=== PATIENT | male | born 1965 | race African-American/Black ===

== ENCOUNTER 2016-06-27 11:08 | Emergency (ER) | payer MEDICAID, OTHER ==
[~2016-06-27] VITALS: Ht 180.3 cm; Wt 113.4 kg
[~2016-06-27 11:08] MED LIST: ADVAIR 250-501 EACH INH; ALBUTEROL SULF8.5 GM INH; ALPRAZOLAM1 MG PO; AMOXICILLIN500 MG ORAL; ASPIRIN-LOW81 MG PO; ATENOLOL50 MG PO; AZITHROMYCIN250 MG ORAL; BACTRIM DS TAB1 EAC1 ORAL; CEPHALEXIN500 MG ORAL; GUAIFENESIN1200 MG PO; HYDROCHLOROTHIA25 MG ORAL; IMITREX100 M1 ORAL; IMITREX50 MG ORAL; KEFLEX500 MG ORAL; MEDROL DOSEPAK4 MG ORAL; NORCO 10-325 T1 EACH ORAL; NORCO 10-325 T1 EACH PO; NORCO 10/3251 EA ORAL; NORCO 5-325 TA1 EACH ORAL; NORVASC10 MG PO; PREDNISONE20 MG ORAL; PROMETHAZINE-C118 M1 ORAL; PROMETHAZINE-D118 ML ORAL; PROMETHAZINE-P118 ML ORAL; RAMIPRIL2.5 MG PO; SOMA350 MG PO; TENORMIN50 MG PO; VUSION OINTMENT50 GM TP; XANAX2 MG ORAL; XANAX2 MG PO; ZITHROMAX250 MG ORAL
[2016-06-27 12:15] VITALS: BP 101/69
[2016-06-27] MEDS ORDERED: PROMETHAZINE-D118 ML ORAL (12:28)
[2016-06-27] MEDS ORDERED: PROAIR HFA8.5 GM INH (12:28)
[2016-06-27] MEDS ORDERED: PREDNISONE20 MG ORAL (12:28)
[2016-06-27 12:38] VITALS: BP 101/69
--- NOTE | 2016-06-27 21:45 | Emergency Room Report ---
History of Present Illness General Chief Complaint: Sore Throat Source: Patient Present Illness HPI The patient is a 50-year-old male presenting with a productive cough and subjective fevers which began one week prior. The patient states that his girlfriend has had similar symptoms but has not been diagnosed with anything. The pt denies CP, SOB, hemoptysis, rash, abd pain, N, V Pt states he has a Hx of asthma. Allergies: Coded Allergies: No Known Allergies (Unverified , 05/25/12) Patient History Past Medical History: see triage record Pertinent Family History: none Reviewed Nursing Documentation: PMH: Agreed, PSxH: Agreed Nursing Documentation-PMH Past Medical History: No History, Except For Hx Hypertension: Yes Hx Asthma: Yes Hx COPD: Yes Review of Systems All Other Systems: negative except mentioned in HPI Physical Exam Vital Signs Date Time Temp Pulse Resp B/P Pulse Ox O2 Delivery O2 Flow Rate FiO2 06/27/16 11:31 98.1 77 16 101/69 96 Room Air Sp02 EP Interpretation: reviewed, normal General Appearance: no apparent distress, alert, GCS 15, non-toxic Head: normocephalic, atraumatic Eyes: bilateral eye PERRL, bilateral eye normal inspection ENT: hearing grossly normal, normal pharynx, no angioedema, normal voice, TMs + canals normal, uvula midline, moist mucus membranes Neck: full range of motion, supple/symm/no masses Respiratory: normal inspection, chest non-tender, decreased breath sounds, wheezing - minimal bilat upper lobes Cardiovascular #1: regular rate, rhythm, no edema Musculoskeletal: back normal, gait/station normal, normal range of motion, non- tender Neurologic: alert, oriented x3, responsive, motor strength/tone normal, sensory intact, speech normal Psychiatric: judgement/insight normal, memory normal, mood/affect normal, no suicidal/homicidal ideation Skin: normal color, no rash, warm/dry, well hydrated Lymphatic: no adenopathy Medical Decision Making PA Attestation Dr. Dunn is my supervising physician. Patient management was discussed with my supervising physician Diagnostic Impression: Primary Impression: Bronchitis ER Course The patient is a 50-year-old male presenting with a productive cough and subjective fevers which began one week prior. Differential diagnosis include but not limited to pharyngitis, sinusitis, AOM, bronchitis, PNA PE: Vitals WNL. NAD. HEENT unremarkable. Lungs: decreased breath sounds. Minimal bilat wheezing of upper lobes. Otherwise exam is unremarkable. The patient will be discharged home with a prescription for albuterol, prednisone, and cough medication. ER precautions are given the patient will follow up with primary care physician Last Vital Signs Date Time Temp Pulse Resp B/P Pulse Ox O2 Delivery O2 Flow Rate FiO2 06/27/16 12:38 98.1 77 16 101/69 96 Room Air Status: improved Disposition: HOME, SELF-CARE Condition: Improved Scripts D-Methorphan Hb/Prometh Hcl* (PROMETHAZINE-DM SYRUP*) 118 Ml Syrup 5 ML ORAL Q6H Y for For Cough, #118 ML 0 Refills Prov: TOMASZ MOODY P.A. 06/27/16 Prednisone* (PREDNISONE*) 20 Mg Tablet 20 MG ORAL DAILY, #5 TAB 0 Refills Prov: TOMASZ MOODY P.A. 06/27/16 Albuterol Sulfate* (PROAIR HFA*) 8.5 Gm Hfa.aer.ad 2 PUFFS INH Q6H, #8.5 GM 0 Refills Prov: TOMASZ MOODY P.A. 06/27/16 Referrals: NON PHYSICIAN (PCP) Patient Instructions: Acute Bronchitis Additional Instructions: I discussed my findings with the patient. All questions and concerns have been answered. Treatment and medication compliance have been addressed. I advised the patient that they need to follow up with PMD in 3-5 days. Return to ED if pain remains or worsens, cough worsens or remains, you notice blood in your sputum, you notice wheezing, you experience a fever, or if needed for any reason. Patient verbalized understanding of discharge instructions. TOMASZ MOODY Jun 27, 2016 21:45
== END 2016-06-27 12:38 | disposition home or self-care (01) ==
LOC: EMR 12:22
DX: J45.909 Unspecified asthma, uncomplicated (principal); J44.9 Chronic obstructive pulmonary disease, unspecified; I10 Essential (primary) hypertension
CPT/HCPCS: 99282

== ENCOUNTER 2016-07-20 11:52 | Emergency (ER) | payer OTHER ==
[~2016-07-20] VITALS: Ht 180.3 cm; Wt 113.4 kg
[~2016-07-20 11:52] MED LIST changes: +PROAIR HFA8.5 GM INH
[2016-07-20 12:30] VITALS: BP 116/75
--- NOTE | 2016-07-20 13:11 | Emergency Room Report ---
History of Present Illness General Chief Complaint: Sore Throat Present Illness HPI 50 YO Male presents to the ED c/o : Sore throat 10/10 pain since sat, denies cough, nasal congestion, or other symptoms. pt. reports chills, and subjective fevers. Pt describes pain as a tearing sensation that is exacerbated with swallowing. Denies CP, Palpitations, LOC, AMS, dizziness, Changes in Vision, Sensation, paresthesias, or a sudden severe headache. Allergies: Coded Allergies: No Known Allergies (Unverified , 05/25/12) Patient History Past Medical History: see triage record Past Surgical History: none Nursing Documentation-PMH Hx Hypertension: Yes Hx Asthma: Yes Hx COPD: Yes Review of Systems All Other Systems: negative except mentioned in HPI Physical Exam Vital Signs Date Time Temp Pulse Resp B/P Pulse Ox O2 Delivery O2 Flow Rate FiO2 07/20/16 12:19 98.8 80 16 116/75 96 Room Air Sp02 EP Interpretation: reviewed, normal General Appearance: no apparent distress, alert, GCS 15, non-toxic Head: normocephalic, atraumatic Eyes: bilateral eye PERRL, bilateral eye normal inspection ENT: hearing grossly normal, normal pharynx, no angioedema, normal voice, TMs + canals normal, uvula midline, pharyngeal erythema, tonsillar exudate Neck: full range of motion, supple/symm/no masses Respiratory: chest non-tender, lungs clear, normal breath sounds, speaking full sentences Cardiovascular #1: regular rate, rhythm, no edema Gastrointestinal: normal bowel sounds, non tender, soft, no guarding, no rebound Rectal: deferred Genitourinary: normal inspection, no CVA tenderness Musculoskeletal: back normal, gait/station normal, normal range of motion, non- tender, no calf tenderness Neurologic: alert, oriented x3, responsive, motor strength/tone normal, sensory intact, speech normal Psychiatric: judgement/insight normal, memory normal, mood/affect normal, no suicidal/homicidal ideation Skin: normal color, no rash, warm/dry, well hydrated Lymphatic: no adenopathy Medical Decision Making PA Attestation Dr. Polanco is my supervising Physician whom patient management has been discussed with. Diagnostic Impression: Primary Impression: Pharyngitis, acute Qualified Codes: J02.9 - Acute pharyngitis, unspecified ER Course Pt. presents to the ED c/o : sore throat, tonsillar swelling x 5 days Ddx considered but are not limited to: pharyngitis, strep, FORK LIFT TECHNICIAN, ludwigs angina, URI Vital signs: are WNL, pt. is afebrile H&PE are most consistent with: pharyngitis presumed strep. ORDERS: None required at this time as the diagnosis is clinical ED INTERVENTIONS: none required at this time. DISCHARGE: At this time pt. is stable for d/c to home. Will provide printed patient care instructions, and any necessary prescriptions. Care plan and follow up instructions have been discussed with the patient prior to discharge. Last Vital Signs Date Time Temp Pulse Resp B/P Pulse Ox O2 Delivery O2 Flow Rate FiO2 07/20/16 12:19 98.8 80 16 116/75 96 Room Air Disposition: HOME, SELF-CARE Condition: Stable Scripts Acetaminophen* (TYLENOL EXTRA STRENGTH*) 500 Mg Tablet 500 MG ORAL Q6H, #30 TAB 0 Refills Prov: Sophia De Los Santos 07/20/16 Lidocaine HCl (Lidocaine HCl Viscous) 100 Ml Solution 15 ML PO TID, #100 ML Prov: Sophia De Los Santos 07/20/16 Amoxicillin* (AMOXIL*) 500 Mg Capsule 500 MG ORAL BID for 10 Days, #20 CAP Prov: Sophia De Los Santos 07/20/16 Referrals: JON NIEVES (PCP) Patient Instructions: Sore Throat Additional Instructions: Take medications as directed. Follow up with PCP in 3-5 days Return sooner to ED if new symptoms occur, or current symptoms become worse. Sophia De Los Santos Jul 20, 2016 13:11
[2016-07-20] MEDS ORDERED: AMOXICILLIN500 MG ORAL (13:14)
[2016-07-20] MEDS ORDERED: LIDOCAINE VISCO20 ML PO (13:14)
[2016-07-20] MEDS ORDERED: TYLENOL EXTRA500 MG ORAL (13:14)
[2016-07-20 13:24] VITALS: BP 116/75
== END 2016-07-20 13:24 | disposition home or self-care (01) ==
LOC: EMR 12:55
DX: J02.9 Acute pharyngitis, unspecified (principal); I10 Essential (primary) hypertension; J44.9 Chronic obstructive pulmonary disease, unspecified; J45.909 Unspecified asthma, uncomplicated
CPT/HCPCS: 99284

== ENCOUNTER 2016-10-08 09:39 | Emergency (ER) | payer OTHER ==
[~2016-10-08] VITALS: Ht 180.3 cm; Wt 108.4 kg
[~2016-10-08 09:39] MED LIST changes: +LIDOCAINE VISCO20 ML PO; +TYLENOL EXTRA500 MG ORAL
[2016-10-08 11:12] VITALS: BP 147/89
--- NOTE | 2016-10-08 13:22 | Emergency Room Report ---
History of Present Illness General Chief Complaint: General Complaint Source: Patient Present Illness HPI 50 YOM presents with "panic attack." Patient states known peptic ulcer disease , had some epigastric pain this morning, now resolved. Compliant with prevacid. Ran out of alprazolam he takes for panic disorder. Denies SI, HI, AVH. Denies nausea/vomiting, diarrhea, previous abd surgery. Denies other medical problems. Denies fever/chills, urinary complaints. Allergies: Coded Allergies: No Known Allergies (Unverified , 05/25/12) Patient History Past Medical History: other - PUD Past Surgical History: none Pertinent Family History: none Social History: Denies: alcohol use, drug use, smoking Immunizations: UTD Reviewed Nursing Documentation: PMH: Agreed, PSxH: Agreed Nursing Documentation-PMH Past Medical History: No History, Except For Hx Hypertension: Yes Hx Asthma: Yes Hx COPD: Yes History Of Psychiatric Problem: Yes - panic attack Review of Systems All Other Systems: negative except mentioned in HPI Physical Exam Vital Signs Date Time Temp Pulse Resp B/P Pulse Ox O2 Delivery O2 Flow Rate FiO2 10/08/16 09:45 98.2 81 16 124/79 97 Room Air Sp02 EP Interpretation: reviewed, normal General Appearance: normal inspection, well appearing, no apparent distress, alert, GCS 15, non-toxic Head: normocephalic, atraumatic Eyes: bilateral eye EOMI, bilateral eye PERRL ENT: normal ENT inspection, hearing grossly normal, normal voice Neck: normal inspection, full range of motion, supple, no bony tend Respiratory: normal inspection, lungs clear, normal breath sounds, no respiratory distress, no retraction, no wheezing Cardiovascular #1: regular rate, rhythm, no edema Gastrointestinal: normal inspection, normal bowel sounds, non tender, soft, no mass, no guarding, no hernia, no pulsatile mass, no rebound Genitourinary: no CVA tenderness Musculoskeletal: normal inspection, back normal, normal range of motion, Sujata' s Sign negative Neurologic: normal inspection, alert, oriented x3, responsive, pest controller III-XII nml as tested, motor strength/tone normal, speech normal Psychiatric: normal inspection, judgement/insight normal, mood/affect normal Skin: normal inspection, normal color, no rash Medical Decision Making Diagnostic Impression: Primary Impression: Anxiety ER Course 50YOM with anxiety vs panic disorder. VSS. Afebrile. No SI, HI, AVH Likely anxiety given he is anxious about particular medical condition ?benzo-seeking behavior as well Gave dose of clonazapam here, advised PMD referral for Benzo Rx's DC home Last Vital Signs Date Time Temp Pulse Resp B/P Pulse Ox O2 Delivery O2 Flow Rate FiO2 10/08/16 11:12 78 19 147/89 100 Room Air 10/08/16 10:30 98.2 Status: improved Disposition: HOME, SELF-CARE Condition: Improved Referrals: [facility],REFERRING (PCP) Patient Instructions: Panic Attacks, [id number] Additional Instructions: - Continue taking prevacid at home for pepctic ulcer disease - Follow up with your doctor for refill of anti-anxiety medication RADHA ZAMORA M.D. Oct 08, 2016 13:22
== END 2016-10-08 10:30 | disposition home or self-care (01) ==
LOC: EMR 09:56
DX: F41.9 Anxiety disorder, unspecified (principal); I10 Essential (primary) hypertension; J44.9 Chronic obstructive pulmonary disease, unspecified; Z87.11 Personal history of peptic ulcer disease
CPT/HCPCS: 99283

== ENCOUNTER 2017-01-11 10:25 | Emergency (ER) | payer OTHER ==
[~2017-01-11] VITALS: Ht 180.3 cm; Wt 104.3 kg
[2017-01-11 11:04] VITALS: BP 89/57
[2017-01-11 11:19] LABS: BASOPHILS % (AUTO) 1.4 % (0.0-2.0); EOSINOPHILS % (AUTO) 1.6 % (0.0-3.0); LYMPHOCYTES % (AUTO) 30.2 % (20.0-45.0); MEAN CORPUSCULAR HEMOGLOBIN 30.4 PG (27.0-31.0); MEAN CORPUSCULAR HGB CONC 30.6 G/DL (32.0-36.0); MEAN CORPUSCULAR VOLUME 99 FL (80-99); MEAN PLATELET VOLUME 11.6 FL (6.5-10.1); MONOCYTES % (AUTO) 9.6 % (1.0-10.0); NEUTROPHILS % (AUTO) 57.3 % (45.0-75.0); PLATELET COUNT 162 K/UL (150-450); RED BLOOD COUNT 4.49 M/UL (4.70-6.10); WHITE BLOOD COUNT 7.8 K/UL (4.8-10.8)
--- NOTE | 2017-01-11 11:19 | Emergency Room Report ---
History of Present Illness General Chief Complaint: Chest Pain Source: Patient Present Illness HPI Patient states that he has had cough and congestion for the past week. He states that over the past few days his symptoms have become worse. He also has sputum production. He admits to smoking marijuana daily including just prior to arrival today. He also used cocaine yesterday. He also smokes intermittently. He has been told that he has asthma or COPD. He states he also has some kidney dysfunction. He states that he has been coughing so much that his abdomen is sore. He denies fever or chills. He denies nausea or vomiting. He denies chest pain. He has no other complaints. Allergies: Coded Allergies: No Known Allergies (Unverified , 05/25/12) Patient History Past Medical History: see triage record, HTN, asthma, renal disease Social History: Reports: alcohol use, drug use - THC, cocaine, smoking Reviewed Nursing Documentation: PMH: Agreed, PSxH: Agreed Nursing Documentation-PMH Hx Hypertension: Yes Hx Asthma: Yes Hx COPD: Yes Review of Systems All Other Systems: negative except mentioned in HPI Physical Exam Vital Signs Date Time Temp Pulse Resp B/P Pulse Ox O2 Delivery O2 Flow Rate FiO2 01/11/17 10:33 97.9 72 20 99/62 96 Room Air Sp02 EP Interpretation: reviewed, normal General Appearance: no apparent distress, alert, GCS 15, non-toxic, other - + odor of marijuana Head: normocephalic, atraumatic Eyes: bilateral eye PERRL, bilateral eye normal inspection ENT: hearing grossly normal, normal pharynx, no angioedema, normal voice Neck: full range of motion, supple/symm/no masses Respiratory: chest non-tender, no respiratory distress, no retraction, no accessory muscle use, speaking full sentences, wheezing, expiration Cardiovascular #1: regular rate, rhythm, no edema Gastrointestinal: normal bowel sounds, non tender, soft, non-distended, no guarding, no rebound Rectal: deferred Musculoskeletal: back normal, gait/station normal, normal range of motion, non- tender, calf tenderness Neurologic: alert, oriented x3, responsive, motor strength/tone normal, sensory intact, speech normal Psychiatric: judgement/insight normal, memory normal, mood/affect normal, no suicidal/homicidal ideation Skin: normal color, no rash, warm/dry, well hydrated Medical Decision Making Diagnostic Impression: Primary Impression: URI (upper respiratory infection) Additional Impressions: COPD exacerbation Renal insufficiency ER Course This patient presents a COPD exacerbation. Initially he was hypotensive with a systolic blood pressure of 89. He was given IV fluids and breathing treatments and IV antibiotics. He had significant improvement the wheezing on exam and his blood pressure improved to normal. The patient was found to have a creatinine of 2.7. The patient has known renal insufficiency but states he hasn 't seen a melt superintendant in several years. He does have authorization to see Dr. Clement. The patient continued to have wheezing on physical exam and given the patient's creatinine at 2.7 an EKG that has diffuse ST elevations although only 1 mm but could be a low-grade pericarditis or J-point elevations. I felt that this patient should be admitted. He does have a reassuring troponin. There is no evidence of pneumonia on chest x-ray. This patient will be admitted to telemetry for further evaluation and treatment. Labs Test 01/11/17 10:40 White Blood Count 7.8 K/UL (4.8-10.8) Red Blood Count 4.49 M/UL (4.70-6.10) Hemoglobin 13.7 G/DL (14.2-18.0) Hematocrit 44.6 % (42.0-52.0) Mean Corpuscular Volume 99 FL (80-99) Mean Corpuscular Hemoglobin 30.4 PG (27.0-31.0) Mean Corpuscular Hemoglobin Concent 30.6 G/DL (32.0-36.0) Red Cell Distribution Width 13.0 % (11.6-14.8) Platelet Count 162 K/UL (150-450) Mean Platelet Volume 11.6 FL (6.5-10.1) Neutrophils (%) (Auto) 57.3 % (45.0-75.0) Lymphocytes (%) (Auto) 30.2 % (20.0-45.0) Monocytes (%) (Auto) 9.6 % (1.0-10.0) Eosinophils (%) (Auto) 1.6 % (0.0-3.0) Basophils (%) (Auto) 1.4 % (0.0-2.0) Sodium Level 139 mEQ/L (135-145) Potassium Level 3.9 mEQ/L (3.4-4.9) Chloride Level 100 mEQ/L (98-107) Carbon Dioxide Level 27 mEQ/L (20-30) Anion Gap 12 (5-15) Blood Urea Nitrogen 35 mg/dL (7-23) Creatinine 2.7 mg/dL (0.7-1.2) Estimat Glomerular Filtration Rate 30.1 mL/min (>60) Glucose Level 109 mg/dL (74-106) Calcium Level 8.6 mg/dL (8.6-10.2) Total Bilirubin 0.3 mg/dL (0.0-1.2) Aspartate Amino Transf (AST/SGOT) 22 U/L (5-40) Alanine Aminotransferase (ALT/SGPT) 15 U/L (3-41) Alkaline Phosphatase 75 U/L (40-129) Total Creatine Kinase 103 U/L (38-174) Creatine Kinase MB < 1.5 ng/mL (< 6.7) Creatine Kinase MB Relative Index Troponin I < 0.30 ng/mL (<=0.30) Total Protein 6.9 g/dL (6.6-8.7) Albumin 4.2 g/dL (3.5-5.2) Globulin 2.7 g/dL Albumin/Globulin Ratio 1.5 (1.0-2.7) EKG Diagnostic Results Rate: normal Rhythm: NSR ST Segments: other Other Impression Diffuse 1mm ST elevations. Rhythm Strip Diag. Results EP Interpretation: yes Rate: 60's Rhythm: NSR, no PVC's, no ectopy Chest X-Ray Diagnostic Results Chest X-Ray Diagnostic Results : Chest X-Ray Ordered: Yes # of Views/Limited/Complete: 1 View Indication: Chest Pain EP Interpretation: No Interpretation: no consolidation, no effusion, no pneumothorax, no acute cardiopulmonary disease Impression: No acute disease Interpreting ER Provider: Bina Last Vital Signs Date Time Temp Pulse Resp B/P Pulse Ox O2 Delivery O2 Flow Rate FiO2 01/11/17 11:04 97.9 68 18 89/57 93 Room Air Disposition: ADMITTED INPATIENT Condition: Serious Referrals: JON NIEVES (PCP) BASHIR ERNANDEZ D.O. Jan 11, 2017 11:19
--- NOTE | 2017-01-11 11:26 | Diagnostic Imaging Report ---
Indication: Chest pain Technique: One view of the chest Comparison: 08/16/2015 Findings: Lungs and pleural spaces are clear. Heart size is normal. No significant change Impression: No acute process
[2017-01-11] MEDS ORDERED: Albuterol ud Inhalation HHN ONE ×2 (11:30→14:45)
[2017-01-11] MEDS ORDERED: cefTRIAXone 1 GM in NS 55 ML IVPB ONE (11:30)
[2017-01-11 11:35] LABS: ALANINE AMINOTRANSFERASE 15 U/L (3-41); ALBUMIN/GLOBULIN RATIO 1.5 (1.0-2.7); ANION GAP 12 (5-15); ASPARTATE AMINO TRANSFERASE 22 U/L (5-40); CALCIUM 8.6 mg/dL (8.6-10.2); CARBON DIOXIDE 27 mEQ/L (20-30); CHLORIDE 100 mEQ/L (98-107); CREATININE 2.7 mg/dL (0.7-1.2); GLOMERULAR FILTRATION RATE 30.1 mL/min (>60); HEMOLYSIS 7; POTASSIUM 3.9 mEQ/L (3.4-4.9); SODIUM 139 mEQ/L (135-145); TOTAL PROTEIN 6.9 g/dL (6.6-8.7); TROPONIN I < 0.30 ng/mL (<=0.30)
[2017-01-11 11:40] VITALS: BP 108/64
[2017-01-11 11:45] LABS: CKMB < 1.5 ng/mL (< 6.7)
[2017-01-11 14:00] VITALS: BP 101/65
[2017-01-11] MEDS ORDERED: PredniSONE 20mg tab ORAL ONE (14:45)
[2017-01-11 15:32] LABS: APPEARANCE,URINE CLEAR; KETONES,URINE NEGATIVE (NEGATIVE); LEUKOCYTE ESTERASE ,URINE NEGATIVE (NEGATIVE); NITRITE,URINE NEGATIVE (NEGATIVE); PH,URINE 5 (4.5-8.0); PROTEIN,URINE NEGATIVE (NEGATIVE); UROBILINOGEN,URINE NORMAL MG/DL (0.0-1.0)
[2017-01-11 16:27] VITALS: BP 100/66
[2017-01-11] MEDS ORDERED: TYLENOL EXTRA500 MG ORAL (17:03)
[2017-01-11] MEDS ORDERED: AZITHROMYCIN250 MG ORAL (17:03)
[2017-01-11] MEDS ORDERED: PREDNISONE20 MG ORAL (17:05)
[2017-01-11 17:12] VITALS: BP 128/76
== END 2017-01-11 17:15 | disposition left against medical advice (07) ==
LOC: EMR 10:55
DX: J06.9 Acute upper respiratory infection, unspecified (principal); J44.1 Chronic obstructive pulmonary disease with (acute) exacerbation; N28.9 Disorder of kidney and ureter, unspecified; I10 Essential (primary) hypertension; F12.90 Cannabis use, unspecified, uncomplicated
CPT/HCPCS: 36415; 71010; 80053; 80300; 81003; 82550; 82553; 84484; 85025; 93005; 94640; 96374; 96375; 99284; J0696

== ENCOUNTER 2017-05-20 13:49 | Emergency (ER) | payer OTHER ==
[~2017-05-20] VITALS: Ht 180.3 cm; Wt 98.0 kg
[2017-05-20] MEDS ORDERED: PREDNISONE20 MG ORAL (14:15)
[2017-05-20] MEDS ORDERED: FLONASE SENSIM9.9 ML NS (14:15)
[2017-05-20] MEDS ORDERED: SUDAFED 12 HOU120 M1 PO (14:15)
[2017-05-20] MEDS ORDERED: PROMETHAZINE-C118 M1 ORAL (14:15)
[2017-05-20 14:30] VITALS: BP 138/95
--- NOTE | 2017-05-20 15:34 | Emergency Room Report ---
History of Present Illness General Chief Complaint: Upper Respiratory Illness Source: Patient Present Illness HPI The patient is a 51-year-old male with a history of asthma and nasal polyp presenting for nasal congestion, cough, and facial pain for the past 3 weeks. He denies any fever or chills. Pain is an 8/10 dull ache and does not radiate from the face. No known provoking relieving factors. He has tried over-the- counter cough medication which has not been helping. He also states that he ran out of clonazepam for anxiety and has not been able to followup with his primary doctor. He states that he has not been feeling anxious recently. He denies any other symptoms including SOB, CP, rash, hemoptysis, abd pain, dizziness Allergies: Coded Allergies: No Known Allergies (Unverified , 05/25/12) Patient History Past Medical History: see triage record Pertinent Family History: none Reviewed Nursing Documentation: PMH: Agreed, PSxH: Agreed Nursing Documentation-PMH Past Medical History: No History, Except For Hx Hypertension: Yes Hx Asthma: Yes Hx COPD: Yes Review of Systems All Other Systems: negative except mentioned in HPI Physical Exam Vital Signs Date Time Temp Pulse Resp B/P (MAP) Pulse Ox O2 Delivery O2 Flow Rate FiO2 05/20/17 13:56 98.1 78 20 142/96 98 Room Air Sp02 EP Interpretation: reviewed, normal General Appearance: no apparent distress, alert, GCS 15, non-toxic Head: normocephalic, atraumatic Eyes: bilateral eye normal inspection, bilateral eye PERRL ENT: normal pharynx, normal voice, uvula midline, nasal congestion - R polyp, other - TTP over maxillary sinuses Respiratory: chest non-tender, lungs clear, normal breath sounds, speaking full sentences Cardiovascular #1: regular rate, rhythm, no edema Musculoskeletal: back normal, gait/station normal, normal range of motion, non- tender Neurologic: alert, oriented x3, responsive, motor strength/tone normal, sensory intact, speech normal Psychiatric: judgement/insight normal, memory normal, mood/affect normal, no suicidal/homicidal ideation Skin: normal color, no rash, warm/dry, well hydrated Lymphatic: no adenopathy Medical Decision Making PA Attestation Dr. Gamez is my supervising physician. Patient management was discussed with my supervising physician Diagnostic Impression: Primary Impression: Allergic rhinitis Qualified Codes: J30.9 - Allergic rhinitis, unspecified Additional Impression: Sinusitis with nasal polyps ER Course The patient is a 51-year-old male with a history of asthma and nasal polyp presenting for nasal congestion, cough, and facial pain for the past 3 weeks Differential diagnosis include but not limited to pharyngitis, sinusitis, AOM, bronchitis, PNA PE: No apparent distress. TTP over maxillary sinuses. Lungs CTA bilat. No wheezing. No accessory muscle use. Heart: RRR, no abnormal heart sounds Ears: external auditory canal clear. Non erythematous. Bilat TM intact. Cone of light present bilat. No bulging of TM. No serous fluid seen. + nasal D/C with R polyp no cervical lymphad No tonsillar exudate. Uvula midline.Oropharynx non erythematous The patient is discharged home with prescription for Sudafed, oral steroids, cough medication , and Flonase. He'll follow up with primary doctor Last Vital Signs Date Time Temp Pulse Resp B/P (MAP) Pulse Ox O2 Delivery O2 Flow Rate FiO2 05/20/17 14:30 98.1 84 19 138/95 99 Room Air Status: improved Disposition: HOME, SELF-CARE Condition: Improved Scripts Pseudoephedrine Hcl (SUDAFED 12 HOUR) 120 Mg Tablet.er 120 MG PO Q12HR, #30 TAB Prov: TERZIAN,TOMASZ P.A. 05/20/17 Codeine/Promethazine Hcl* (PROMETHAZINE-CODEINE SYRUP*) 118 Ml Syrup 5 ML ORAL Q6H Y for For Cough, #118 ML 0 Refills Prov: TERZIAN,TOMASZ P.A. 05/20/17 Fluticasone Furoate (FLONASE SENSIMIST) 9.9 Ml [place].susp 1 SPRAYS NS DAILY, #10 ML Prov: TERZIAN,TOMASZ P.A. 05/20/17 Prednisone* (PREDNISONE*) 20 Mg Tablet 40 MG ORAL DAILY, #10 TAB Prov: TERZIAN,TOMASZ P.A. 05/20/17 Referrals: [facility],REFERRING (PCP) Patient Instructions: Sinusitis, Adult, Allergic Rhinitis Additional Instructions: I discussed my findings with the patient. All questions and concerns have been answered. Treatment and medication compliance have been addressed. I advised the patient that they need to follow up with PMD in 3-5 days. Return to ED if pain remains or worsens, cough worsens or remains, you notice blood in your sputum, you notice wheezing, you experience a fever, or if needed for any reason. Patient verbalized understanding of discharge instructions. TOMASZ MOODY May 20, 2017 15:34
== END 2017-05-20 14:34 | disposition home or self-care (01) ==
LOC: EMR 14:13
DX: J30.9 Allergic rhinitis, unspecified (principal); J32.9 Chronic sinusitis, unspecified; J33.9 Nasal polyp, unspecified; I10 Essential (primary) hypertension; J44.9 Chronic obstructive pulmonary disease, unspecified
CPT/HCPCS: 99284

== ENCOUNTER 2017-05-24 12:34 | Emergency (ER) | payer OTHER ==
[~2017-05-24] VITALS: Ht 177.8 cm; Wt 94.3 kg
[~2017-05-24 12:34] MED LIST changes: +FLONASE SENSIM9.9 ML NS; +SUDAFED 12 HOU120 M1 PO
[2017-05-24 13:15] VITALS: BP 128/84
--- NOTE | 2017-05-24 13:40 | Emergency Room Report ---
History of Present Illness General Chief Complaint: General Complaint Source: Patient Present Illness HPI 51 YO Male presents to the ED c/O anxiety & cough. Pt requests refill of Xanax. Reports being out of his previously prescribed medication and increase in anxiety after finding a mouse in his house last night. Patient denies drug use. Reports a persistent dry cough x3 days. Ice fevers, chills, nausea, vomiting, abdominal pain, productive sputum. Denies CP, Palpitations, LOC, AMS , dizziness, Changes in Vision, Sensation, paresthesias, or a sudden severe headache. Patient is specifically requesting Xanax and promethazine with codeine. Patient states that he just felt promethazine with codeine 3 days ago and his symptoms have continued. Allergies: Coded Allergies: No Known Allergies (Unverified , 05/25/12) Patient History Past Medical History: see triage record Past Surgical History: none Pertinent Family History: none Immunizations: UTD Reviewed Nursing Documentation: PMH: Agreed, PSxH: Agreed Nursing Documentation-PMH Hx Hypertension: Yes Hx Asthma: Yes Hx COPD: Yes Review of Systems All Other Systems: negative except mentioned in HPI Physical Exam Vital Signs Date Time Temp Pulse Resp B/P (MAP) Pulse Ox O2 Delivery O2 Flow Rate FiO2 05/24/17 12:44 98.2 74 20 121/81 98 Room Air Sp02 EP Interpretation: reviewed, normal General Appearance: no apparent distress, alert, GCS 15, non-toxic Head: normocephalic, atraumatic ENT: hearing grossly normal, normal voice Neck: full range of motion, supple/symm/no masses Respiratory: lungs clear, normal breath sounds, no respiratory distress, no wheezing, speaking full sentences Cardiovascular #1: regular rate, rhythm Musculoskeletal: back normal, gait/station normal, normal range of motion, non- tender Neurologic: alert, oriented x3, responsive, motor strength/tone normal, sensory intact, normal gait, speech normal Skin: normal color, no rash, warm/dry, well hydrated Medical Decision Making PA Attestation Dr. Kwon is my supervising Physician whom patient management has been discussed with. Diagnostic Impression: Primary Impression: Cough Additional Impression: History of anxiety ER Course Pt requests refill of Xanax. Reports being out of his previously prescribed medication and increase in anxiety after finding a mouse in his house last night. Patient denies drug use. Reports a persistent dry cough x3 days. Ice fevers, chills, nausea, vomiting, abdominal pain, productive sputum. Denies CP , Palpitations, LOC, AMS, dizziness, Changes in Vision, Sensation, paresthesias , or a sudden severe headache. Patient is specifically requesting Xanax and promethazine with codeine. Patient states that he just felt promethazine with codeine 3 days ago and his symptoms have continued. d/w pt. that jsut as explained at previous visits our policy is that we do not refill chronically rx'd controlled substances. pt. requests pmz with codeine. - as recent fill will rx only pmz without codeine. i suspect drug seeking behavior. Pt. presents to the ED c/o dry cough and chest congestion x [ ] day(s). pt. requests steriod burst. Ddx considered but are not limited to URI, pneumonia, PE, strep pharyngitis, meningitis. Vital signs: Pt.is afebrile VS are WNL H&PE are most consistent with bronchitis ORDERS: none required at this time, the diagnosis is clinical ED INTERVENTIONS: None required at this time. DISCHARGE: At this time pt. is stable for d/c to home. Will provide printed patient care instructions, and any necessary prescriptions. Care plan and follow up instructions have been discussed with the patient prior to discharge. Last Vital Signs Date Time Temp Pulse Resp B/P (MAP) Pulse Ox O2 Delivery O2 Flow Rate FiO2 05/24/17 13:15 98.2 74 20 128/84 98 Room Air Disposition: HOME, SELF-CARE Condition: Stable Scripts Buspirone Hcl* (BUSPAR*) 10 Mg Tablet 10 MG ORAL THREE TIMES A DAY, #15 TAB 0 Refills Prov: Sophia De Los Santos P.A. 05/24/17 D-Methorphan Hb/Prometh Hcl* (PROMETHAZINE-DM SYRUP*) 118 Ml Syrup 5 ML ORAL Q6H Y for For Cough, #120 ML 0 Refills Prov: Sophia De Los Santos P.A. 05/24/17 Referrals: JON NIEVES (PCP) Patient Instructions: Medicine Refill at the Emergency Department Additional Instructions: Take medications as directed. Follow up with a Primary Care Provider in 3-5 days, Please contact our provider for refills of your regularly prescribed anti-anxiety medications as they are controlled substances. Return sooner to ED if new symptoms occur, or current symptoms become worse. Do not drink alcohol, drive, or operate heavy machinery while taking cough syrup as this may cause drowsiness. - Please note that this Emergency Department Report was dictated using [employer] and [employer] technology software, occasionally this can lead to erroneous entry secondary to interpretation by the dictation equipment. Sophia De Los Santos May 24, 2017 13:40
[2017-05-24] MEDS ORDERED: BUSPAR10 MG ORAL (13:41)
[2017-05-24] MEDS ORDERED: PROMETHAZINE-D118 ML ORAL (13:41)
[2017-05-24 13:55] VITALS: BP 112/68
== END 2017-05-24 13:55 | disposition home or self-care (01) ==
LOC: EMR 13:30
DX: R05 Cough (principal); F41.9 Anxiety disorder, unspecified; J44.9 Chronic obstructive pulmonary disease, unspecified; I10 Essential (primary) hypertension
CPT/HCPCS: 99284

== ENCOUNTER 2017-06-21 14:36 | Emergency (ER) | payer OTHER ==
[~2017-06-21] VITALS: Ht 180.3 cm; Wt 95.3 kg
[~2017-06-21 14:36] MED LIST changes: +BUSPAR10 MG ORAL
[2017-06-21] MEDS ORDERED: AMOXICILLIN500 MG ORAL (15:05)
[2017-06-21] MEDS ORDERED: PROMETHAZINE-C118 M1 ORAL (15:05)
[2017-06-21] MEDS ORDERED: PREDNISONE20 MG ORAL (15:05)
[2017-06-21 15:22] VITALS: BP 128/83
[2017-06-21 15:23] VITALS: BP 128/83
--- NOTE | 2017-06-22 13:02 | Emergency Room Report ---
History of Present Illness General Chief Complaint: Upper Respiratory Illness Source: Patient Present Illness HPI 51-year-old male presents ED complaining of cough and bodyaches times one week. Cough is productive with yellowish phlegm. Afebrile at triage. Denies chest pain or shortness of breath. History of COPD. Denies sick contacts or recent travel. No other aggravating relieving factors. Denies any other associated symptoms Allergies: Coded Allergies: No Known Allergies (Unverified , 05/25/12) Patient History Past Medical History: HTN, asthma, COPD Past Surgical History: none Pertinent Family History: none Social History: Denies: smoking, alcohol use, drug use Immunizations: UTD Reviewed Nursing Documentation: PMH: Agreed, PSxH: Agreed Nursing Documentation-PMH Hx Hypertension: Yes Hx Asthma: Yes Hx COPD: Yes Review of Systems All Other Systems: negative except mentioned in HPI Physical Exam Vital Signs Date Time Temp Pulse Resp B/P (MAP) Pulse Ox O2 Delivery O2 Flow Rate FiO2 06/21/17 14:38 97.3 86 20 110/71 99 Room Air Sp02 EP Interpretation: reviewed, normal General Appearance: no apparent distress, alert, GCS 15, non-toxic Head: normocephalic, atraumatic Eyes: bilateral eye normal inspection, bilateral eye PERRL ENT: hearing grossly normal, normal pharynx, no angioedema, normal voice Neck: full range of motion, supple/symm/no masses Respiratory: chest non-tender, lungs clear, normal breath sounds, speaking full sentences Cardiovascular #1: regular rate, rhythm, no edema Cardiovascular #2: 2+ carotid (R), 2+ carotid (L), 2+ radial (R), 2+ radial (L) , 2+ dorsalis pedis (R), 2+ dorsalis pedis (L) Gastrointestinal: normal bowel sounds, non tender, soft, non-distended, no guarding, no rebound Rectal: deferred Genitourinary: normal inspection, no CVA tenderness Musculoskeletal: back normal, gait/station normal, normal range of motion, non- tender Neurologic: alert, oriented x3, responsive, motor strength/tone normal, sensory intact, speech normal Psychiatric: judgement/insight normal, memory normal, mood/affect normal, no suicidal/homicidal ideation Reflexes: 3+ bicep (R), 3+ bicep (L), 3+ tricep (R), 3+ tricep (L), 3+ knee (R) , 3+ knee (L) Skin: normal color, no rash, warm/dry, well hydrated Lymphatic: no adenopathy Medical Decision Making Diagnostic Impression: Primary Impression: COPD (chronic obstructive pulmonary disease) Qualified Codes: J44.9 - Chronic obstructive pulmonary disease, unspecified ER Course Hospital Course 51-year-old male presents ED complaining of cough times one week Differential diagnoses include: URI, pharyngitis, otitis media, asthma Clinical course Patient placed on stretcher. After initial history, physical exam reveals a middle aged male in no acute distress. Bilateral TM unremarkable. No pharyngeal erythema. No tonsillar exudates. No lymphadenopathy. lungs clear. abdomen soft. Given history of COPD we will prescribe antibiotics, steroids and cough medication Diagnosis - COPD Stable and discharged home with Rx Amoxicllin, prednisone, promethazine/ codeine. Instructed to followup with PMD. Return to ED if symptoms recur or worsen Last Vital Signs Date Time Temp Pulse Resp B/P (MAP) Pulse Ox O2 Delivery O2 Flow Rate FiO2 06/21/17 15:23 98.2 84 17 128/83 98 Room Air Status: improved Disposition: HOME, SELF-CARE Condition: Stable Scripts Codeine/Promethazine Hcl* (PROMETHAZINE-CODEINE SYRUP*) 118 Ml Syrup 5 ML ORAL Q6H Y for For Cough, #118 ML 0 Refills Prov: KATY PARKS M.D. 06/21/17 Prednisone* (PREDNISONE*) 20 Mg Tablet 40 MG ORAL DAILY, #10 TAB Prov: KATY PARKS M.D. 06/21/17 Amoxicillin* (AMOXIL*) 500 Mg Capsule 500 MG ORAL THREE TIMES A DAY, #21 CAP Prov: KATY PARKS M.D. 06/21/17 Referrals: NON PHYSICIAN (PCP) Patient Instructions: Community-Acquired Pneumonia, Adult, [id number] KATY PARKS M.D. Jun 22, 2017 13:02
== END 2017-06-21 15:23 | disposition home or self-care (01) ==
LOC: EMR 15:16
DX: J44.9 Chronic obstructive pulmonary disease, unspecified (principal); I10 Essential (primary) hypertension
CPT/HCPCS: 99283

== ENCOUNTER 2017-07-14 11:01 | Emergency (ER) | payer OTHER ==
[~2017-07-14] VITALS: Ht 180.3 cm; Wt 95.3 kg
[2017-07-14] MEDS ORDERED: PREDNISONE20 MG ORAL (11:17)
[2017-07-14] MEDS ORDERED: AZITHROMYCIN250 MG ORAL (11:17)
[2017-07-14 11:28] VITALS: BP 137/84
[2017-07-14 11:29] VITALS: BP 137/84
--- NOTE | 2017-07-18 22:46 | Emergency Room Report ---
History of Present Illness General Chief Complaint: Upper Respiratory Illness Source: Patient Present Illness HPI Patient presents with complaints of cough and congestion Reports that he has had sputum production yellowish Denies any chest pain Denies any vomiting or diarrhea denies any rash He does have URI symptoms including mild runny nose Denies any neck pain or photophobia denies any pleurisy denies any recent travel Allergies: Coded Allergies: No Known Allergies (Unverified , 05/25/12) Patient History Past Medical History: see triage record Pertinent Family History: none Reviewed Nursing Documentation: PMH: Agreed, PSxH: Agreed Nursing Documentation-PMH Past Medical History: No History, Except For Hx Hypertension: Yes Hx Asthma: Yes Hx COPD: Yes Review of Systems All Other Systems: negative except mentioned in HPI Physical Exam Vital Signs Date Time Temp Pulse Resp B/P (MAP) Pulse Ox O2 Delivery O2 Flow Rate FiO2 07/14/17 11:05 97.7 68 18 137/84 100 Room Air Sp02 EP Interpretation: reviewed, normal General Appearance: well appearing, no apparent distress Head: normocephalic, atraumatic Eyes: bilateral eye PERRL, bilateral eye EOMI ENT: hearing grossly normal, normal pharynx, TMs + canals normal, uvula midline Neck: full range of motion, supple, no meningismus, no bony tend Respiratory: lungs clear, normal breath sounds, no rhonchi, no respiratory distress, no retraction, no accessory muscle use Cardiovascular #1: normal peripheral pulses, regular rate, rhythm, no edema, no gallop, no JVD, no murmur Gastrointestinal: normal bowel sounds, non tender, soft, no mass, no organomegaly, non-distended, no guarding, no hernia, no pulsatile mass, no rebound Genitourinary: no CVA tenderness Musculoskeletal: normal inspection Neurologic: oriented x3, responsive, supreme court judge III-XII nml as tested, motor strength/ tone normal, sensory intact Psychiatric: mood/affect normal Skin: normal color, no rash, warm/dry, palpation normal Lymphatic: normal inspection, no adenopathy Medical Decision Making Diagnostic Impression: Primary Impression: atypical pneumonia ER Course Given the patient's clinical history has presentation in line with atypical pneumonia Also has history of COPD Patient requiring oral antibiotics Patient was provided with low steroids initially asking for cough medicine and was directed to his primary physician for that Last Vital Signs Date Time Temp Pulse Resp B/P (MAP) Pulse Ox O2 Delivery O2 Flow Rate FiO2 07/14/17 11:29 97.7 68 18 137/84 100 Room Air Status: improved Disposition: HOME, SELF-CARE Condition: Stable Scripts Prednisone* (PREDNISONE*) 20 Mg Tablet 20 MG ORAL BID, #10 TAB Prov: IESHA JENKINS D.O. 07/14/17 Azithromycin* (ZITHROMAX*) 250 Mg Tablet 250 MG ORAL DAILY, #6 TAB 0 Refills Take two tablets by mouth today, then take one tablet by mouth daily for four days Prov: IESHA JENKINS D.O. 07/14/17 Referrals: [facility],REFERRING (PCP) Patient Instructions: Community-Acquired Pneumonia, Adult, [id number] Additional Instructions: Patient is provided with the discharge instructions notified to follow up with primary doctor in the next 2-3 days otherwise return to the er with any worsening symptoms. Please note that this report is being documented using [employer] technology. This can lead to erroneous entry secondary to incorrect interpretation by the dictating instrument. IESHA JENKINS D.O. Jul 18, 2017 22:46
== END 2017-07-14 11:44 | disposition home or self-care (01) ==
LOC: EMR 11:25
DX: J18.9 Pneumonia, unspecified organism (principal); J44.9 Chronic obstructive pulmonary disease, unspecified; I10 Essential (primary) hypertension
CPT/HCPCS: 99284

== ENCOUNTER 2017-09-04 14:48 | Emergency (ER) | payer OTHER ==
[~2017-09-04] VITALS: Ht 177.8 cm; Wt 95.3 kg
[2017-09-04 15:15] VITALS: BP 131/78
--- NOTE | 2017-09-04 15:46 | Emergency Room Report ---
History of Present Illness General Chief Complaint: Behavioral Complaint Source: Patient Present Illness HPI 51 yo male patient presents to ER requesting medication refill. Also complains of sore throat. Denies difficulty eating or drinking. Denies cough. Also reports wheezing earlier today, used albuterol and Pro-Air for relief of symptoms; denies symptoms acutely in ER. Reports hx of asthma and COPD. Reports smokes cigarettes. Denies fever, weight loss, hemoptysis, SOB, chest pain. Allergies: Coded Allergies: No Known Allergies (Unverified , 05/25/12) Patient History Past Medical History: see triage record Reviewed Nursing Documentation: PMH: Agreed; PSxH: Agreed Nursing Documentation-PMH Past Medical History: No History, Except For Hx Hypertension: Yes Hx Asthma: Yes Hx COPD: Yes Review of Systems All Other Systems: negative except mentioned in HPI Physical Exam Vital Signs Date Time Temp Pulse Resp B/P (MAP) Pulse Ox O2 Delivery O2 Flow Rate FiO2 09/04/17 15:05 98.3 70 20 131/78 97 Room Air 98.2 Sp02 EP Interpretation: reviewed, normal General Appearance: well appearing, no apparent distress, alert, GCS 15, non- toxic Head: normocephalic, atraumatic Eyes: bilateral eye normal inspection, bilateral eye PERRL ENT: hearing grossly normal, normal pharynx, no angioedema, normal voice, TMs + canals normal, uvula midline, moist mucus membranes Neck: full range of motion Respiratory: chest non-tender, no respiratory distress, no accessory muscle use , speaking full sentences, wheezing - bilateral lower lobes, intermittent Cardiovascular #1: regular rate, rhythm, no edema Genitourinary: no CVA tenderness Musculoskeletal: back normal, digits/nails normal, gait/station normal, normal range of motion, non-tender Neurologic: alert, oriented x3, responsive, motor strength/tone normal, sensory intact Psychiatric: mood/affect normal Skin: no rash Lymphatic: no adenopathy Medical Decision Making PA Attestation Dr. Dunn is my supervising Physician whom patient management has been discussed with. ER Course Pt presents to ED c/o asthma symptoms and requesting medication refill. DDX considered but are not limited to asthma, viral URI, influenza, pneumonia, bronchitis, strep throat. Does not require imaging at this time. VITAL SIGNS are WNL, patient is afebrile. CURES report shows patient received 3 day supply of medication on August 22. Ordered breathing treatment and medication. ER COURSE PE patient wheezing. Patient reports no difficulty with breathing, reports did breathing treatment at home. Will provide with breathing treatment and steroid in ER. No crackles, no fever, low suspicion for pneumonia. No tonsillar exudates, no deviated uvula, no stridor. Informed patient will not provide him with refill of Ativan prescription. Patient said "fine then I don't need any of it." Patient eloped. Last Vital Signs Date Time Temp Pulse Resp B/P (MAP) Pulse Ox O2 Delivery O2 Flow Rate FiO2 09/04/17 15:05 98.3 70 20 131/78 97 Room Air 98.2 Disposition: ELOPED Condition: Stable Luis Abdi Sep 04, 2017 15:46
[2017-09-04 15:50] VITALS: BP 131/78
[2017-09-04] MEDS ORDERED: Albuterol/Ipratropium 3ml neb HHN ONE (16:00)
== END 2017-09-04 16:20 | disposition left against medical advice (07) ==
LOC: EMR 15:30
DX: J44.9 Chronic obstructive pulmonary disease, unspecified (principal); Z53.21 Procedure and treatment not carried out due to patient leaving prior to being seen by health care provider; F17.210 Nicotine dependence, cigarettes, uncomplicated
CPT/HCPCS: 99282

== ENCOUNTER 2018-01-04 11:10 | Emergency (ER) | payer OTHER ==
[~2018-01-04] VITALS: Ht 177.8 cm; Wt 99.8 kg
--- NOTE | 2018-01-04 12:26 | Emergency Room Report ---
History of Present Illness General Chief Complaint: Pain Source: Patient Present Illness HPI 52-year-old male reports that his left hip hurts and has been hurting for the past 2 days ever since he fell onto his left hip when he was taking down lights outside of his house, he reports he did not hit his head neck or hurt himself anywhere else but Benadryl can his left hip, he was able to ambulate then and has been ambulating the last 2 days but reports tramadol is not helping his pain. He also reports he has been suffering from an anxiety attack lately and wants to have some Klonopin for another benzodiazepine here. He denies chest pain, short of breath, head neck pain or any other pain complaints. He reports he did not bleed anywhere. He reports he has a history of hypertension, chronic kidney disease, and anxiety. Allergies: Coded Allergies: No Known Allergies (Unverified , 05/25/12) Patient History Past Medical History: see triage record Reviewed Nursing Documentation: PMH: Agreed; PSxH: Agreed Nursing Documentation-PMH Hx Hypertension: Yes Hx Asthma: Yes Hx COPD: Yes History Of Psychiatric Problem: Yes - anxiety Review of Systems All Other Systems: negative except mentioned in HPI Physical Exam Vital Signs Date Time Temp Pulse Resp B/P (MAP) Pulse Ox O2 Delivery O2 Flow Rate FiO2 01/04/18 11:16 97.5 70 20 104/64 95 Room Air 97.5 Sp02 EP Interpretation: reviewed, normal General Appearance: no apparent distress, alert, non-toxic Head: normocephalic Eyes: bilateral eye normal inspection, bilateral eye PERRL, bilateral eye EOMI ENT: normal ENT inspection, hearing grossly normal, normal pharynx, no angioedema, normal voice, moist mucus membranes Neck: normal inspection, full range of motion, supple, supple/symm/no masses Respiratory: chest non-tender, lungs clear, normal breath sounds, chest symmetrical, palpation of chest normal Cardiovascular #1: normal peripheral pulses, regular rate, rhythm Cardiovascular #2: 2+ radial (R), 2+ radial (L) Gastrointestinal: normal inspection, non tender, soft, no mass, no guarding, no rebound Rectal: deferred Genitourinary: normal inspection, no CVA tenderness Musculoskeletal: back normal, gait/station normal, normal range of motion - No limitation of hip range of motion, non-tender, no calf tenderness Neurologic: alert, responsive, supervisor pit and auxiliaries III-XII nml as tested, motor strength/tone normal, sensory intact, speech normal Psychiatric: judgement/insight normal, memory normal, mood/affect normal, no suicidal/homicidal ideation Skin: normal color, no rash, warm/dry, normal turgor, hematoma - Large roughly 2-3% total body surface area skin lesion that patient reports as a hematoma, over the superior aspect left lateral thigh\hip area, however it's hyperpigmented, slightly elevated, well-circumscribed, and does not have the classic appearance of an aging bruise, raising suspicion for a pre-existing skin abnormality, not in acute hematoma or ecchymosis Lymphatic: no adenopathy Medical Decision Making Diagnostic Impression: Primary Impression: Hematoma ER Course Patient with normal x-rays, do not suspect serious illness, will discharge. Other X-Ray Diagnostic Results Other X-Ray Diagnostic Results : X-Ray ordered: L hip # of Views/Limited Vs Complete: 2 View Indication: Pain EP Interpretation: Yes Interpretation: no dislocation, no soft tissue swelling, no fractures Impression: No acute disease Electronically Signed by: Liu Martini MD Last Vital Signs Date Time Temp Pulse Resp B/P (MAP) Pulse Ox O2 Delivery O2 Flow Rate FiO2 01/04/18 11:16 97.5 70 20 104/64 95 Room Air 97.5 Disposition: HOME, SELF-CARE Condition: Stable Referrals: JON NIEVES (PCP) LIU MARTINI M.D Jan 04, 2018 12:26
[2018-01-04] MEDS ORDERED: LORazepam 1mg tab ORAL ONE (12:30)
[2018-01-04] MEDS ORDERED: Acetaminophen 500mg (ES) tab ORAL ONE (12:30)
[2018-01-04] MEDS ORDERED: traMADol 50mg tab ORAL ONE (12:30)
[2018-01-04] MEDS ORDERED: TRAMADOL HCL50 MG ORAL (13:11)
[2018-01-04 13:17] VITALS: BP 104/64
--- NOTE | 2018-01-04 15:58 | Diagnostic Imaging Report ---
Indication: Left hip pain, trauma Technique: 2 views of the hip Comparison: none Findings: No acute fractures. No dislocations. The joint spaces are preserved. Impression: Negative
== END 2018-01-04 13:17 | disposition home or self-care (01) ==
LOC: EMR 11:40
DX: S70.02XA Contusion of left hip, initial encounter (principal); W18.30XA Fall on same level, unspecified, initial encounter; Y93.89 Activity, other specified; Y92.018 Other place in single-family (private) house as the place of occurrence of the external cause; I10 Essential (primary) hypertension; J45.909 Unspecified asthma, uncomplicated; J44.9 Chronic obstructive pulmonary disease, unspecified
CPT/HCPCS: 73502; 99283

== ENCOUNTER 2018-06-18 13:22 | Emergency (ER) | payer OTHER ==
[~2018-06-18] VITALS: Ht 180.3 cm; Wt 104.3 kg
[~2018-06-18 13:22] MED LIST changes: +TRAMADOL HCL50 MG ORAL
[2018-06-18] MEDS ORDERED: RAMIPRIL5 MG ORAL (13:30)
--- NOTE | 2018-06-18 13:35 | NUR ---
ED Nurse Note: Pt came in from home due to productive coughing with yellowish congestion x 1 week. AOx4, VSS lorenza. Will cont to monitor.
[2018-06-18] MEDS ORDERED: Albuterol/Ipratropium 3ml neb HHN ONE (14:00)
[2018-06-18] MEDS ORDERED: PREDNISONE20 MG ORAL (14:11)
[2018-06-18] MEDS ORDERED: DOXYCYCLINE MO100 MG ORAL (14:11)
[2018-06-18] MEDS ORDERED: GUAIFENESIN DM118 M1 ORAL (14:11)
[2018-06-18] MEDS ORDERED: Albuterol/Ipratropium 3ml neb ONE (14:39)
[2018-06-18 14:41] VITALS: BP 125/79
--- NOTE | 2018-06-18 14:55 | Emergency Room Report ---
History of Present Illness General Chief Complaint: Upper Respiratory Illness Source: Patient Present Illness HPI Patient is a 52-year-old male with a prior history of asthma. Patient reports of increased cough and difficulty breathing. He denies any fever. He reports having prior history of asthma. He states that he has been having increased congestion as well as worsening cough which was somewhat productive with clear phlegm. Patient is currently a smoker. He denies any vomiting or severe headache. He had been taking his inhalers without much improvement. Allergies: Coded Allergies: No Known Allergies (Unverified , 06/18/18) Patient History Past Medical History: see triage record Reviewed Nursing Documentation: PMH: Agreed; PSxH: Agreed Nursing Documentation-PMH Past Medical History: No History, Except For Hx Hypertension: Yes Hx Asthma: Yes Hx COPD: Yes Hx Dialysis: No - NEPHRITIS Review of Systems All Other Systems: negative except mentioned in HPI Physical Exam Vital Signs Date Time Temp Pulse Resp B/P (MAP) Pulse Ox O2 Delivery O2 Flow Rate FiO2 06/18/18 13:25 98.2 91 18 126/86 95 Room Air Sp02 EP Interpretation: reviewed, normal General Appearance: normal inspection, well appearing, no apparent distress, alert, GCS 15, Chronically Ill Head: atraumatic ENT: normal ENT inspection, hearing grossly normal, normal voice Neck: normal inspection, full range of motion, supple, no bony tend Respiratory: normal inspection, normal breath sounds, no respiratory distress, no retraction, wheezing Cardiovascular #1: regular rate, rhythm, no edema Gastrointestinal: normal inspection, normal bowel sounds, non tender, soft, no guarding, no hernia Genitourinary: no CVA tenderness Musculoskeletal: normal inspection, back normal, normal range of motion Neurologic: normal inspection, alert, oriented x3, responsive, solutions operator III-XII nml as tested, speech normal Psychiatric: normal inspection, judgement/insight normal, mood/affect normal Skin: normal inspection, normal color, no rash Medical Decision Making Diagnostic Impression: Primary Impression: COPD exacerbation ER Course Patient presented for cough. Differential diagnosis includes is not limited to pneumonia, bronchitis, COPD exacerbation, influenza, upper respiratory infection among others. Patient has a benign exam and does not appear to require any further imaging or laboratory testing at this time. Patient was given a breathing treatment as well as oral steroids. Patient was noted to have prior history of COPD and has had increased productive cough patient will be started on oral antibiotics. Patient was noted to be afebrile and will be discharged home. Patient states that he will follow-up with his primary care physician for recheck. Patient was given prescription for cough medications. Is advised to return if he began having fever increased shortness of breath. Last Vital Signs Date Time Temp Pulse Resp B/P (MAP) Pulse Ox O2 Delivery O2 Flow Rate FiO2 06/18/18 14:41 98.2 87 18 125/79 96 Room Air Status: improved Disposition: HOME, SELF-CARE Condition: Stable Scripts Doxycycline Monohydrate* (DOXYCYCLINE MONOHYDRATE*) 100 Mg Capsule 100 MG ORAL Q12H, #14 CAP 0 Refills Prov: Parish Dunn MD 06/18/18 Prednisone* (PREDNISONE*) 20 Mg Tablet 40 MG ORAL DAILY, #10 TAB Prov: Parish Dunn MD 06/18/18 Guaifenesin/Dextromethorphan (Guaifenesin Dm Syrup) 5 Ml Syrup 1 TSP ORAL Q8H, #118 ML 0 Refills Prov: Parish Dunn MD 06/18/18 Patient Instructions: Chronic Obstructive Pulmonary Disease, [id number] Parish Dunn MD Jun 18, 2018 14:55
[2018-06-18 15:04] VITALS: BP 125/79
--- NOTE | 2018-06-18 15:04 | NUR ---
ED Nurse Note: Pt clear to be discharged by ERMD. Discharge paper and prescription given, pt verbalized understanding of discharge instruction. AOx4, VSS. Wristband removed. Pt ambulated out with steady gait with all belongings.
== END 2018-06-18 15:50 | disposition home or self-care (01) ==
LOC: EMR 15:49
DX: J44.1 Chronic obstructive pulmonary disease with (acute) exacerbation (principal); F17.200 Nicotine dependence, unspecified, uncomplicated; I10 Essential (primary) hypertension
CPT/HCPCS: 94640; 94664; 99283; J7512; J7620

== ENCOUNTER 2018-08-21 06:27 | Emergency (ER) | payer OTHER ==
[~2018-08-21] VITALS: Ht 180.3 cm; Wt 104.3 kg
[~2018-08-21 06:27] MED LIST changes: +DOXYCYCLINE MO100 MG ORAL; +GUAIFENESIN DM118 M1 ORAL; +RAMIPRIL5 MG ORAL
[2018-08-21 06:46] VITALS: BP 144/90
--- NOTE | 2018-08-21 06:50 | NUR ---
ER Nurse Note: Pt came from home c/o difficulty breathing since 08/17. Pt stated he is congested with spitting thick clear phlegm. Lung sounds not clear. Pt O2 at 96%. Pt a&ox4, VSS, no signs of distress. Will continue to montior.
[2018-08-21] MEDS ORDERED: Albuterol ud Inhalation HHN ONE (07:15)
[2018-08-21] MEDS ORDERED: Ipratropium 0.02% Inh Soln 2.5ml UD HHN ONE (07:15)
--- NOTE | 2018-08-21 07:33 | Emergency Room Report ---
History of Present Illness General Chief Complaint: Upper Respiratory Illness Source: Patient Present Illness HPI This patient states that for the past 5 days he has had cough, congestion and wheezing. He has a history of COPD. He has a home nebulizer machine with albuterol. He has a spiriva inhaler. He states that he has been using all of these medications without relief. He states that the only thing that typically helps him is prednisone. He denies fever or chills. He denies nausea or vomiting. He denies sputum production. He denies headache or neck pain. He denies sore throat. He has no other complaints. Allergies: Coded Allergies: No Known Allergies (Unverified , 06/18/18) Patient History Past Medical History: see triage record, HTN, COPD, renal disease Social History: Denies: smoking, alcohol use, drug use Reviewed Nursing Documentation: PMH: Agreed; PSxH: Agreed Nursing Documentation-PMH Hx Hypertension: Yes Hx Asthma: Yes Hx COPD: Yes Hx Dialysis: No - NEPHRITIS Review of Systems All Other Systems: negative except mentioned in HPI Physical Exam Vital Signs Date Time Temp Pulse Resp B/P (MAP) Pulse Ox O2 Delivery O2 Flow Rate FiO2 08/21/18 06:31 98.1 88 14 144/90 96 Room Air Sp02 EP Interpretation: reviewed, normal General Appearance: no apparent distress, alert, GCS 15, non-toxic Head: normocephalic, atraumatic Eyes: bilateral eye normal inspection, bilateral eye PERRL ENT: hearing grossly normal, normal pharynx, no angioedema, normal voice Neck: full range of motion, supple/symm/no masses Respiratory: chest non-tender, no respiratory distress, no retraction, no accessory muscle use, speaking full sentences, wheezing, expiration Cardiovascular #1: regular rate, rhythm, no edema Gastrointestinal: normal bowel sounds, non tender, soft, non-distended, no guarding, no rebound Rectal: deferred Musculoskeletal: back normal, gait/station normal, normal range of motion, non- tender Neurologic: alert, oriented x3, responsive, motor strength/tone normal, sensory intact, speech normal Psychiatric: judgement/insight normal, memory normal, mood/affect normal, no suicidal/homicidal ideation Skin: normal color, no rash, warm/dry, well hydrated Medical Decision Making Diagnostic Impression: Primary Impression: Upper respiratory infection Additional Impression: Asthma exacerbation ER Course This patient has a clinical presentation consistent with asthma exacerbation and URI. Patient has a history of asthma and has wheezing on physical exam. The patient was given albuterol and Atrovent nebulizer treatments. The patient was also given prednisone orally. The patient had significant improvement in subjective shortness of breath. The patient's lung exam improved significantly. I will also treat the patient with a course of antibiotics as this has been shown to improve the course of an asthma exacerbation. I had planned on obtaining basic labs on this patient given the history of renal disease, however, the patient adamantly declined. The patient states he only wanted treatment for his asthma and especially prednisone. I was able to talk him into doing a nebulizer treatment here in the emergency department given the wheezing identified on exam. The patient wanted no further treatment in the emergency department. He also declined chest x-ray. Overall, he is well- appearing and so I did not force this patient to leave AGAINST MEDICAL ADVICE. The patient was given close return precautions and followup instructions. EKG Diagnostic Results Rate: normal Rhythm: NSR ST Segments: no acute changes Rhythm Strip Diag. Results EP Interpretation: yes Rate: 70's Rhythm: NSR, no PVC's, no ectopy Last Vital Signs Date Time Temp Pulse Resp B/P (MAP) Pulse Ox O2 Delivery O2 Flow Rate FiO2 08/21/18 06:46 88 14 Room Air 08/21/18 06:46 98.1 144/90 96 Disposition: HOME, SELF-CARE Condition: Improved Referrals: [facility],REFERRING (PCP) Cheryl Burton DO Aug 21, 2018 07:33
[2018-08-21] MEDS ORDERED: ZITHROMAX250 MG ORAL (07:36)
[2018-08-21] MEDS ORDERED: ROBITUSSIN COU237 M2 PO (07:36)
[2018-08-21] MEDS ORDERED: PREDNISONE20 MG ORAL (07:36)
[2018-08-21 08:29] VITALS: BP 144/90
--- NOTE | 2018-08-21 08:31 | NUR ---
ER DISCHARGE NOTE:pt. received breathing treatment and po meds Patient is cleared to be discharged per ERMD, pt is aox4, on room air, with stable vital signs. pt was given dc and prescription instructions, pt was able to verbalize understanding, pt is able to ambulate with steady gait. pt took all belongings.
--- NOTE | 2018-08-21 16:57 | Cardiology Report ---
APPROVED REPORT EKG Measurement Heart [id number] Normal sinus rhythm Normal ECG
== END 2018-08-21 08:31 | disposition home or self-care (01) ==
LOC: EMR 07:01
DX: J06.9 Acute upper respiratory infection, unspecified (principal); J45.901 Unspecified asthma with (acute) exacerbation; J44.9 Chronic obstructive pulmonary disease, unspecified; I10 Essential (primary) hypertension
CPT/HCPCS: 86710; 93005; 94640; 99284; J7512

== ENCOUNTER 2018-10-07 06:57 | Emergency (ER) | payer OTHER ==
[~2018-10-07] VITALS: Ht 180.3 cm; Wt 99.8 kg
[~2018-10-07 06:57] MED LIST changes: +ROBITUSSIN COU237 M2 PO
[2018-10-07] MEDS ORDERED: HYDROCHLOROTHIA25 MG ORAL (07:07)
[2018-10-07] MEDS ORDERED: ATENOLOL100 MG ORAL (07:07)
[2018-10-07] MEDS ORDERED: LIPITOR40 MG ORAL (07:07)
[2018-10-07] MEDS ORDERED: Solu-MEDROL 125mg Inj IVP ONE (07:15)
--- NOTE | 2018-10-07 07:18 | Emergency Room Report ---
History of Present Illness General Chief Complaint: Allergic Reaction Source: Patient Present Illness HPI The patient presents with a week of itching. Started on his back. 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 2 weeks ago he was on a course of prednisone for allergies and a polyp in his right nose. He also has renal dysfunction and says that he's being followed by a body artist. He had friends staying with him and there was more stress. Because of anxiety also. Allergic reaction like this before. He's not been taking any medication for it. He denies hematuria or dysuria. He also denies diabetes. The patient does take alprazolam for anxiety. He's been out of this recently. He has some heartburn and nausea with occasional vomiting. Seems to be worse in the morning and may be related to the polyp and postnasal drip. He doesn't have any nasal sprays at this time. No change in bowels. No throat swelling. No chest pain. Allergic rhinitis/polyp COPD/tobacco abuse Migraine HTN Allergies: Coded Allergies: No Known Allergies (Unverified , 06/18/18) Patient History Past Medical History: see triage record Social History: Reports: smoking Social History Narrative from home Reviewed Nursing Documentation: PMH: Agreed; PSxH: Agreed Nursing Documentation-PMH Past Medical History: No History, Except For Hx Hypertension: Yes Hx Asthma: Yes Hx COPD: Yes Hx Dialysis: No - NEPHRITIS Review of Systems All Other Systems: negative except mentioned in HPI Physical Exam Vital Signs Date Time Temp Pulse Resp B/P (MAP) Pulse Ox O2 Delivery O2 Flow Rate FiO2 10/07/18 06:59 98.8 79 12 100/67 94 Room Air Sp02 EP Interpretation: reviewed, normal General Appearance: well appearing, no apparent distress, GCS 15 Head: normocephalic Eyes: bilateral eye normal inspection, bilateral eye PERRL ENT: moist mucus membranes, other - polyp R nostril with some congestion Neck: supple Respiratory: lungs clear, normal breath sounds Cardiovascular #1: regular rate, rhythm Cardiovascular #2: 2+ radial (L) Gastrointestinal: normal inspection, normal bowel sounds, non tender, no mass, non-distended, overweight Musculoskeletal: back normal, gait/station normal, normal range of motion Neurologic: alert, oriented x3, grossly normal Psychiatric: mood/affect normal Skin: normal inspection, warm/dry, other - scratch hugo back, no urticaria Medical Decision Making Diagnostic Impression: Primary Impression: Generalized pruritus Additional Impressions: Eosinophilia Allergic rhinitis Qualified Codes: J30.89 - Other allergic rhinitis Renal insufficiency ER Course The patient presents with itching and burning in his skin. He's had a history of allergic rhinitis and recently been on prednisone. I differential includes anxiety, hives, prednisone withdrawal, exacerbation of renal dysfunction, generalized allergic reaction most others. Evaluation will be with EKG and labs. The patient will be given a dose of Methylprednisolone here. CXR not indicated due to lack of symptoms involving chest. Labs with elevated white count and eosinophilia. Renal failure which is improved from prior. Based on indices dialysis is not indicated at this time. He was unable to urinate here. Patient is improved with Solu-Medrol. Discussed results with patient. Patient improved and stable for outpatient observation and treatment. Laboratory Tests Test 10/07/18 07:30 White Blood Count 12.9 K/UL (4.8-10.8) H Red Blood Count 4.47 M/UL (4.70-6.10) L Hemoglobin 13.6 G/DL (14.2-18.0) L Hematocrit 42.5 % (42.0-52.0) Mean Corpuscular Volume 95 FL (80-99) Mean Corpuscular Hemoglobin 30.5 PG (27.0-31.0) Mean Corpuscular Hemoglobin Concent 32.1 G/DL (32.0-36.0) Red Cell Distribution Width 12.3 % (11.6-14.8) Platelet Count 206 K/UL (150-450) Mean Platelet Volume 10.1 FL (6.5-10.1) Neutrophils (%) (Auto) 65.5 % (45.0-75.0) Lymphocytes (%) (Auto) 21.7 % (20.0-45.0) Monocytes (%) (Auto) 8.4 % (1.0-10.0) Eosinophils (%) (Auto) 3.1 % (0.0-3.0) H Basophils (%) (Auto) 1.3 % (0.0-2.0) Sodium Level 137 MMOL/L (136-145) Potassium Level 3.8 MMOL/L (3.5-5.1) Chloride Level 100 MMOL/L (98-107) Carbon Dioxide Level 27 MMOL/L (21-32) Anion Gap 10 mmol/L (5-15) Blood Urea Nitrogen 29 mg/dL (7-18) H Creatinine 2.3 MG/DL (0.55-1.30) H Estimate Glomerular Filtration Rate 36.1 mL/min (>60) Glucose Level 103 MG/DL (74-106) Calcium Level 8.9 MG/DL (8.5-10.1) Total Bilirubin 0.3 MG/DL (0.2-1.0) Aspartate Amino Transferase (AST) 24 U/L (15-37) Alanine Aminotransferase (ALT) 22 U/L (12-78) Alkaline Phosphatase 61 U/L (46-116) Total Creatine Kinase 148 U/L (26-308) Pro-B-Type Natriuretic Peptide 108 pg/mL (0-125) Total Protein 7.2 G/DL (6.4-8.2) Albumin 3.7 G/DL (3.4-5.0) Globulin 3.5 g/dL Albumin/Globulin Ratio 1.1 (1.0-2.7) EKG Diagnostic Results Rate: normal Rhythm: NSR ST Segments: no acute changes Rhythm Strip Diag. Results EP Interpretation: yes Rhythm: NSR, no PVC's, no ectopy Last Vital Signs Date Time Temp Pulse Resp B/P (MAP) Pulse Ox O2 Delivery O2 Flow Rate FiO2 10/07/18 09:12 98.2 73 18 124/72 100 Room Air Status: improved Disposition: HOME, SELF-CARE Condition: Improved Scripts Mometasone Furoate (NASONEX) 17 Gm [place].pump 2 SPRAYS NASAL DAILY, #1 GM 0 Refills Prov: Deon Young MD 10/07/18 Alprazolam* (XANAX*) 0.25 Mg Tablet 0.25 MG ORAL TID PRN for PRN Agitation/Anxiety, #6 TAB 0 Refills Prov: Deon Young MD 10/07/18 Diphenhydramine Hcl* (BENADRYL*) 25 Mg Capsule 25 MG ORAL Q6HR PRN for Itching, #14 CAP Prov: Deon Young MD 10/07/18 Prednisone* (PREDNISONE*) 20 Mg Tablet 40 MG ORAL DAILY, #10 TAB Prov: Deon Young MD 10/07/18 Deon Young MD Oct 07, 2018 07:18
[2018-10-07 07:31] VITALS: BP 92/69
--- NOTE | 2018-10-07 07:34 | NUR ---
ED Nurse Note: Patient present at ER c/o rash and itchiness on all over the body. Patient is aao x4 and ambulatory. no cardiac and pulmonary distress noted. no rash noted at this moment. calm and cooperative.
--- NOTE | 2018-10-07 07:36 | NUR ---
ED Nurse Note: Patient stated "I cannot pee. I just did right before I got here." will wait little bit Addendum: 10/07/18 at 0737 by [email or web address] ED Nurse Note: Patient stated "I cannot pee. I just did right before I got here." will wait more.
[2018-10-07 08:01] LABS: BASOPHILS % (AUTO) 1.3 % (0.0-2.0); EOSINOPHILS % (AUTO) 3.1 % (0.0-3.0); HEMATOCRIT 42.5 % (42.0-52.0); HEMOGLOBIN 13.6 G/DL (14.2-18.0); LYMPHOCYTES % (AUTO) 21.7 % (20.0-45.0); MEAN CORPUSCULAR VOLUME 95 FL (80-99); MONOCYTES % (AUTO) 8.4 % (1.0-10.0); NEUTROPHILS % (AUTO) 65.5 % (45.0-75.0); PLATELET COUNT 206 K/UL (150-450); RED BLOOD COUNT 4.47 M/UL (4.70-6.10); RED CELL DISTRIBUTION WIDTH 12.3 % (11.6-14.8); WHITE BLOOD COUNT 12.9 K/UL (4.8-10.8)
--- NOTE | 2018-10-07 08:26 | NUR ---
ED Nurse Note: Patient attempted to urinate in bathroom and he could not. ERMD made aware.
--- NOTE | 2018-10-07 08:27 | NUR ---
ED Nurse Note: Patient reported that he needs to leave in [address] a advent van. ERMD made aware and he called the lab to john on blood test lab results.
[2018-10-07] MEDS ORDERED: XANAX0.25 MG ORAL (08:37)
[2018-10-07] MEDS ORDERED: PREDNISONE20 MG ORAL (08:37)
[2018-10-07] MEDS ORDERED: NASONEX17 GM NASAL (08:37)
[2018-10-07] MEDS ORDERED: BENADRYL25 MG ORAL (08:37)
[2018-10-07 08:50] LABS: ANION GAP 10 mmol/L (5-15); BLOOD UREA NITROGEN 29 mg/dL (7-18); CALCIUM 8.9 MG/DL (8.5-10.1); CARBON DIOXIDE 27 MMOL/L (21-32); CHLORIDE 100 MMOL/L (98-107); CREATININE 2.3 MG/DL (0.55-1.30); POTASSIUM 3.8 MMOL/L (3.5-5.1); SODIUM 137 MMOL/L (136-145)
--- NOTE | 2018-10-07 08:54 | NUR ---
ED Nurse Note: ERMD at bedside to explain patient the lab results.
[2018-10-07 09:01] LABS: ALANINE AMINOTRANSFERASE 22 U/L (12-78); ALBUMIN 3.7 G/DL (3.4-5.0); ALBUMIN/GLOBULIN RATIO 1.1 (1.0-2.7); ALKALINE PHOSPHATASE 61 U/L (46-116); ASPARTATE AMINO TRANSFERASE 24 U/L (15-37); BILIRUBIN,TOTAL 0.3 MG/DL (0.2-1.0); CREATINE KINASE 148 U/L (26-308)
--- NOTE | 2018-10-07 09:10 | NUR ---
ER DISCHARGE NOTE: Patient is cleared to be discharged per ERMD, pt is aox4, on room air, with stable vital signs. pt was given dc and prescription instructions, pt was able to verbalize understanding, pt id band and iv site removed without complications. pt is able to ambulate with steady gait. pt took all belongings.
[2018-10-07 09:12] VITALS: BP 124/72
== END 2018-10-07 09:10 | disposition home or self-care (01) ==
LOC: EMR 07:30
DX: L29.9 Pruritus, unspecified (principal); D72.1 Eosinophilia; J30.89 Other allergic rhinitis; N28.9 Disorder of kidney and ureter, unspecified; I10 Essential (primary) hypertension; J44.9 Chronic obstructive pulmonary disease, unspecified; F41.9 Anxiety disorder, unspecified; F17.200 Nicotine dependence, unspecified, uncomplicated; Z79.899 Other long term (current) drug therapy; R11.2 Nausea with vomiting, unspecified; E66.3 Overweight; Z68.30 Body mass index [BMI] 30.0-30.9, adult
CPT/HCPCS: 80053; 82550; 83880; 85025; 93005; 96374; 99284; J2930; 36415

== ENCOUNTER 2018-12-27 22:30 | Emergency (ER) | payer OTHER ==
[~2018-12-27] VITALS: Ht 180.3 cm; Wt 102.1 kg
[~2018-12-27 22:30] MED LIST changes: +ATENOLOL100 MG ORAL; +BENADRYL25 MG ORAL; +LIPITOR40 MG ORAL; +NASONEX17 GM NASAL; +XANAX0.25 MG ORAL
[2018-12-27 23:20] VITALS: BP 100/62
[2018-12-27] MEDS: Ipratropium 0.02% Inh Soln 2.5ml UD HHN ONE (23:29)
[2018-12-27] MEDS: Albuterol ud Inhalation HHN ONE (23:29)
--- NOTE | 2018-12-27 23:42 | Emergency Room Report ---
History of Present Illness General Chief Complaint: Pain Source: Patient Present Illness HPI This is a 52-year-old male with a history of high blood pressure and/COPD. He presents with chief complaint of shortness of breath and wheezing. Onset for last week. No nausea no vomiting. No fever chills. Also was a polyp in his right nose and cannot breathe out of it. Denies any other complaint. Worse with exertion. Better with rest. Allergies: Coded Allergies: No Known Allergies (Unverified , 06/18/18) Patient History Past Medical History: see triage record, old chart reviewed, HTN, asthma, COPD Past Surgical History: other Pertinent Family History: none Social History: Reports: smoking Immunizations: other Reviewed Nursing Documentation: PMH: Agreed; PSxH: Agreed Nursing Documentation-PMH Past Medical History: No History, Except For Hx Hypertension: Yes Hx Asthma: Yes Hx COPD: Yes Hx Dialysis: No - NEPHRITIS Review of Systems Eye: Denies: eye pain, blurred vision ENT: Denies: ear pain, nose congestion, throat swelling Respiratory: Reports: cough, shortness of breath Cardiovascular: Denies: chest pain, palpitations Gastrointestinal: Denies: abdominal pain, diarrhea, nausea, vomiting Musculoskeletal: Denies: back pain, joint pain Skin: Denies: rash Neurological: Denies: headache, numbness Endocrine: Denies: increased thirst, increased urine Hematologic/Lymphatic: Denies: easy bruising All Other Systems: negative except mentioned in HPI Physical Exam Vital Signs Date Time Temp Pulse Resp B/P (MAP) Pulse Ox O2 Delivery O2 Flow Rate FiO2 12/27/18 23:07 98.1 85 22 100/62 (75) 89 Room Air 12/27/18 23:28 21 Vitals with hypoxia repeat 93% on room air. Sp02 EP Interpretation: reviewed, abnormal General Appearance: well appearing, no apparent distress, alert Head: normocephalic, atraumatic Eyes: bilateral eye PERRL, bilateral eye EOMI ENT: hearing grossly normal, normal pharynx Neck: full range of motion, supple, no meningismus Respiratory: chest non-tender, decreased breath sounds, wheezing Cardiovascular #1: regular rate, rhythm, no murmur Gastrointestinal: normal bowel sounds, non tender, no mass, no organomegaly, no bruit, non-distended Musculoskeletal: back normal, gait/station normal, normal range of motion Psychiatric: mood/affect normal Medical Decision Making Diagnostic Impression: Primary Impression: COPD exacerbation ER Course This patient presents with COPD exacerbation. Wheezing much improved after breathing treatment. Oxygenation much better. He said he felt better and back to baseline. Will discharge home. No evidence of ACS, PE, dissection to name a few. Last Vital Signs Date Time Temp Pulse Resp B/P (MAP) Pulse Ox O2 Delivery O2 Flow Rate FiO2 12/27/18 23:29 79 18 94 Room Air 21 12/27/18 23:20 98.1 100/62 Status: improved Disposition: HOME, SELF-CARE Condition: Stable Scripts Azithromycin* (ZITHROMAX*) 250 Mg Tablet 250 MG ORAL DAILY, #6 TAB 0 Refills Take two tables once daily for 1 day, then one tablet once daily for 4 days. Prov: Gerardo Moss MD 12/28/18 Prednisone* (PREDNISONE*) 20 Mg Tablet 40 MG ORAL DAILY, #10 TAB Prov: Gerardo Moss MD 12/28/18 Albuterol Sulfate* (ALBUTEROL SULFATE MDI*) 8.5 Gm Hfa.aer.ad 2 PUFF INH Q4H PRN for cough/wheezing, #1 EA 0 Refills Prov: Gerardo Moss MD 12/28/18 Additional Instructions: Stop smoking. Increase fluids. Follow-up with your doctor in 7 days. Return if worse. Gerardo Moss MD Dec 27, 2018 23:42
[2018-12-28] MEDS ORDERED: ZITHROMAX250 MG ORAL (00:22)
[2018-12-28] MEDS ORDERED: PREDNISONE20 MG ORAL (00:22)
[2018-12-28] MEDS ORDERED: ALBUTEROL SULF8.5 GM INH (00:22)
[2018-12-28 00:30] VITALS: BP 101/63
== END 2018-12-28 00:30 | disposition home or self-care (01) ==
LOC: EMR 23:26
DX: J44.1 Chronic obstructive pulmonary disease with (acute) exacerbation (principal); I10 Essential (primary) hypertension; F17.200 Nicotine dependence, unspecified, uncomplicated
CPT/HCPCS: 94640; 94664; 99284; J7512

== ENCOUNTER 2019-05-17 11:35 | Emergency (ER) | payer OTHER ==
[~2019-05-17] VITALS: Ht 180.3 cm; Wt 102.1 kg
--- NOTE | 2019-05-17 12:08 | NUR ---
ED Nurse Note: Patient complaining of flu like s/s for 1 week. Patient has a sore throat and runny nose.
[2019-05-17 12:15] VITALS: BP 105/70
--- NOTE | 2019-05-17 12:21 | Emergency Room Report ---
History of Present Illness General Chief Complaint: Flu Like Symptoms Source: Patient Present Illness HPI 53-year-old male with history of heavy tobacco smoke here complaining of 1 week of cough and congestion. Denies fever and chills, wheezing, shortness of breath , chest pain, abdominal pain, nausea vomiting. Complains of sore throat that started a week ago. Reports that he has a lot of phlegm production. Has not taken medication for symptom relief. Denies recent travel, sick contact. Patient also has history of COPD. At this time lungs are clear to auscultation patient sitting comfortably with stable vital signs. No further imaging is needed at this time. Allergies: Coded Allergies: No Known Allergies (Unverified , 06/18/18) Patient History Past Medical History: see triage record Past Surgical History: unable to obtain Pertinent Family History: none Immunizations: UTD Reviewed Nursing Documentation: PMH: Agreed; PSxH: Agreed Nursing Documentation-PMH Hx Cardiac Problems: No Hx Hypertension: Yes Hx Pacemaker: No Hx Asthma: Yes Hx COPD: Yes Hx Diabetes: No Hx Cancer: No Hx Gastrointestinal Problems: No Hx Dialysis: No History Of Psychiatric Problem: No Hx Neurological Problems: No Hx Cerebrovascular Accident: No Hx Seizures: No Review of Systems All Other Systems: negative except mentioned in HPI Physical Exam Vital Signs Date Time Temp Pulse Resp B/P (MAP) Pulse Ox O2 Delivery O2 Flow Rate FiO2 05/17/19 12:00 98.2 79 20 105/70 (82) 96 Room Air Sp02 EP Interpretation: reviewed, normal General Appearance: no apparent distress, alert, GCS 15, non-toxic Head: normocephalic, atraumatic Eyes: bilateral eye normal inspection, bilateral eye PERRL ENT: EOM grossly intact, no angioedema, normal voice, TMs + canals normal, pharyngeal erythema Neck: full range of motion, supple, thyroid normal, no meningismus, no bony tend Respiratory: chest non-tender, lungs clear, normal breath sounds, no rhonchi, no respiratory distress, no retraction, no accessory muscle use, no wheezing, speaking full sentences Cardiovascular #1: regular rate, rhythm, no edema, no gallop, no murmur Gastrointestinal: non tender, soft Rectal: deferred Musculoskeletal: back normal, no calf tenderness, pelvis stable Neurologic: alert, motor strength/tone normal, oriented x3, sensory intact, responsive, speech normal Psychiatric: judgement/insight normal, memory normal, mood/affect normal, no suicidal/homicidal ideation Skin: no rash Lymphatic: no adenopathy Medical Decision Making PA Attestation All my diagnosis and treatment plans were reviewed ad discussed with my supervising physician Dr. Burton Diagnostic Impression: Primary Impression: Atypical pneumonia ER Course 53-year-old male with history of heavy tobacco smoke here complaining of 1 week of cough and congestion. Denies fever and chills, wheezing, shortness of breath , chest pain, abdominal pain, nausea vomiting. Complains of sore throat that started a week ago. Reports that he has a lot of phlegm production. Has not taken medication for symptom relief. Denies recent travel, sick contact. Patient also has history of COPD. At this time lungs are clear to auscultation patient sitting comfortably with stable vital signs. No further imaging is needed at this time. Ddx considered but are not limited to: bronchitis, PNA, URI viral, bacterial bronchitis, atypical pneumonia Vital signs: are WNL, pt. is afebrile H&PE are most consistent with: Atypical pneumonia ORDERS: Azithromycin, Phenergan, albuterol ED INTERVENTIONS: Rocephin DISCHARGE: At this time pt. is stable for d/c to home. Will provide printed patient care instructions, and any necessary prescriptions. Care plan and follow up instructions have been discussed with the patient prior to discharge. Patient to follow-up with her primary care provider, if worsening symptoms return to the emergency room Last Vital Signs Date Time Temp Pulse Resp B/P (MAP) Pulse Ox O2 Delivery O2 Flow Rate FiO2 05/17/19 12:00 98.2 79 20 105/70 (82) 96 Room Air Disposition: HOME, SELF-CARE Condition: Stable Scripts Albuterol Sulfate (VENTOLIN HFA) 18 Gm Hfa.aer.ad 2 PUFFS INH EVERY 6 HOURS, #18 GM 0 Refills Prov: Philip Mcnair 05/17/19 Promethazine Hcl (PROMETHAZINE HCL*) 6.25 Mg/5 Ml Syrup 5 ML ORAL Q6H, #120 ML 0 Refills Prov: Philip Mcnair 05/17/19 Azithromycin* (ZITHROMAX*) 250 Mg Tablet 250 MG ORAL DAILY, #6 TAB 0 Refills Take two tables once daily for 1 day, then one tablet once daily for 4 days. Prov: Philip Mcnair 05/17/19 Patient Instructions: Upper Respiratory Infection, Adult, [id number] Additional Instructions: Take medication as directed, follow-up with your primary care provider, lungs are clear to auscultation this time no chest x-ray necessary however do follow- up with your primary care physician due to your history of tobacco smoking COPD Philip Mcnair May 17, 2019 12:21
[2019-05-17] MEDS ORDERED: VENTOLIN HFA18 GM INH (12:23)
[2019-05-17] MEDS ORDERED: PROMETHAZI6.25 MG/1 ORAL (12:23)
[2019-05-17] MEDS ORDERED: ZITHROMAX250 MG ORAL (12:23)
[2019-05-17] MEDS ORDERED: Lidocaine 1% MPF 10mg/ml 5ml INJ ONE (12:30)
[2019-05-17 12:35] VITALS: BP 105/70
--- NOTE | 2019-05-17 12:35 | NUR ---
ED Nurse Note: Patient cleared for discharge by Philip DECK ENGINE OPERATOR. Reviewed discharge instructions and medication prescriptions with patient. Patient verbalized understanding.
== END 2019-05-17 12:35 | disposition home or self-care (01) ==
LOC: EMR 12:30
DX: J18.9 Pneumonia, unspecified organism (principal); I10 Essential (primary) hypertension; J44.9 Chronic obstructive pulmonary disease, unspecified
CPT/HCPCS: 96372; J0696; Z7502; 99283

== ENCOUNTER 2019-12-05 11:16 | Emergency (ER) | payer MEDICAID, OTHER ==
[~2019-12-05] VITALS: Ht 180.3 cm; Wt 95.7 kg
[~2019-12-05 11:16] MED LIST changes: +PROMETHAZI6.25 MG/1 ORAL; +VENTOLIN HFA18 GM INH
--- NOTE | 2019-12-05 11:37 | Emergency Room Report ---
History of Present Illness General Chief Complaint: Lower Extremity Injury Source: Patient Present Illness HPI 53-year-old male presents with right bottom foot pain patient reports he may have stepped on glass a few days ago he noticed there is his foreign body sensation below the mid foot below the great toe, no fevers no chills he endorses some pain worsened by stepping on foot, severity is mild, intermittent patient presents for evaluation and treatment Allergies: Coded Allergies: No Known Allergies (Unverified , 06/18/18) COVID-19 Screening Contact w/high risk pt: No Recent Travel to affected area: No Experienced COVID-19 symptoms?: No COVID-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 Patient History Past Medical History: see triage record Reviewed Nursing Documentation: PMH: Agreed; PSxH: Agreed Nursing Documentation-PMH Past Medical History: No History, Except For Hx Cardiac Problems: No Hx Hypertension: Yes Hx Pacemaker: No Hx Asthma: Yes Hx COPD: Yes Hx Diabetes: No Hx Cancer: No Hx Gastrointestinal Problems: No Hx Dialysis: No Hx Neurological Problems: No Hx Cerebrovascular Accident: No Hx Seizures: No Review of Systems All Other Systems: negative except mentioned in HPI Physical Exam Vital Signs Date Time Temp Pulse Resp B/P (MAP) Pulse Ox O2 Delivery O2 Flow Rate FiO2 12/05/19 11:19 98.2 69 17 125/80 (95) 98 Room Air General Appearance: well appearing, no apparent distress Head: normocephalic, atraumatic ENT: hearing grossly normal, normal voice Neck: full range of motion, supple Respiratory: no respiratory distress, speaking full sentences Musculoskeletal: other - Right foot: 2+ PT DP fires EHL, small punctate lesion below the great toe midfoot, no erythema no pus no drainage no obvious foreign body. Neurologic: alert, normal gait Psychiatric: mood/affect normal Skin: no rash Medical Decision Making Diagnostic Impression: Primary Impression: Sensation of foreign body in foot ER Course Patient presents with foreign body sensation right foot, no e/o of erythema, infection. Patient given expectant management X-ray shows no evidence of foreign body no fracture. Patient counseled that if he starts developing infection erythema or pus drainage to return to the ED immediately, patient most likely with a possible foreign body that will self extricate with time. Counseled patient that we would do more harm trying to look for a foreign body with a scalpel patient understands. Other X-Ray Diagnostic Results Other X-Ray Diagnostic Results : X-Ray ordered: Right foot # of Views/Limited Vs Complete: 3 View Indication: Pain EP Interpretation: Yes Interpretation: no soft tissue swelling, no fractures, other - No foreign body Impression: No acute disease Electronically Signed by: Manuel Goff MD Last Vital Signs Date Time Temp Pulse Resp B/P (MAP) Pulse Ox O2 Delivery O2 Flow Rate FiO2 12/05/19 11:19 98.2 69 17 125/80 (95) 98 Room Air Disposition: HOME, SELF-CARE Condition: Stable Referrals: [facility] Patient Instructions: Foot Sprain Additional Instructions: The patient was provided with discharge instructions, notified to follow-up with a primary care doctor and or specialist in the next 24-48 hours, and to return to the ED if they have worsening of their symptoms. Please note that this report is being documented using DRAGON technology. This can lead to erroneous entry secondary to incorrect interpretation by the dictating instrument. You have a possible foreign body however it could not be retrieved, please return for any infection, pus or drainage from the right foot, x-ray shows no conclusive evidence of a foreign body. However you continue to feel a foreign body continue watching the area, please do not put pressure on the front aspect of the foot. Please return if you worsen Manuel Goff MD Dec 05, 2019 11:37
[2019-12-05 12:03] VITALS: BP 131/79
--- NOTE | 2019-12-05 12:16 | Diagnostic Imaging Report ---
EXAM: X-RAY XRAY Foot Complete R CLINICAL HISTORY: Foot pain. Evaluate for foreign body. COMPARISON: None FINDINGS: Total of 3 views of the right foot were obtained. Alignment is anatomic. There is no fracture, bony lesions or erosions. Joint spaces are unremarkable. Surrounding soft tissue is normal. Specifically there is no radiopaque foreign body seen IMPRESSION: NO RADIOPAQUE FOREIGN BODY IDENTIFIED.
== END 2019-12-05 12:04 | disposition home or self-care (01) ==
LOC: EMR 11:35
DX: M25.571 Pain in right ankle and joints of right foot (principal); I10 Essential (primary) hypertension; J44.9 Chronic obstructive pulmonary disease, unspecified; J45.909 Unspecified asthma, uncomplicated
CPT/HCPCS: 73630; Z7502; 99283

== ENCOUNTER 2020-08-25 11:22 | Emergency (ER) | payer MEDICAID, OTHER ==
[~2020-08-25] VITALS: Ht 180.3 cm; Wt 97.5 kg
[2020-08-25 11:25] VITALS: BP 123/82
--- NOTE | 2020-08-25 11:35 | Emergency Room Report ---
History of Present Illness General Chief Complaint: Flu Like Symptoms Source: Patient Present Illness HPI The patient states that for the past 5 to 6 days he has had a sore throat, cough with sputum production and shortness of breath. The patient does present during the COVID-19 pandemic. He reports that he received the second dose of the Moderna vaccine 10 days ago. The symptoms started approximately 4 days after the second dose of the vaccine. He states he is concerned about COVID-19. He has a history of COPD, hypertension, prediabetes and chronic kidney disease. He reports that over the past couple months he is also been having a burning sensation in both of his feet. He states he does have an appointment to be seen for this tomorrow. He reports he is also had increased thirst. He admits to smoking tobacco daily at half a pack a day for the past 40 years. He also uses cocaine and marijuana daily. He does have Advair, albuterol and other COPD medications but has not taken them in the past week. Denies fever or chills. H e denies nausea or vomiting. He reports some weight loss. He denies dysuria or hematuria. He denies headache or neck pain. He denies tingling or numbness. He denies chest pain. He has no other complaints. 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 COVID-19 Screening: Negative COVID-19 COVID-19 Testing Source: rapid Patient History Past Medical History: see triage record, DM, HTN, asthma, COPD Social History: Reports: smoking - Heavy 1/7cswy13 years, alcohol use - moderate, drug use - cocaine, cannibas Reviewed Nursing Documentation: PMH: Agreed; PSxH: Agreed Nursing Documentation-PMH Past Medical History: No History, Except For Hx Cardiac Problems: No Hx Hypertension: Yes Hx Pacemaker: No Hx Asthma: Yes Hx COPD: Yes Hx Diabetes: Yes Hx Cancer: No Hx Gastrointestinal Problems: No Hx Dialysis: No Hx Neurological Problems: No Hx Cerebrovascular Accident: No Hx Seizures: No Review of Systems All Other Systems: negative except mentioned in HPI Physical Exam Vital Signs Date Time Temp Pulse Resp B/P (MAP) Pulse Ox O2 Delivery O2 Flow Rate FiO2 08/25/20 11:25 97.9 76 19 123/82 (96) 93 Room Air Sp02 EP Interpretation: reviewed, normal - Triage 02 , on my evaluation 100% on RA. General Appearance: no apparent distress, alert, GCS 15, non-toxic Head: normocephalic, atraumatic Eyes: bilateral eye normal inspection, bilateral eye PERRL ENT: hearing grossly normal, no angioedema, normal voice, uvula midline, pharyngeal erythema Neck: normal inspection, full range of motion, supple/symm/no masses Respiratory: chest non-tender, no respiratory distress, no retraction, no accessory muscle use, speaking full sentences, wheezing, expiration Cardiovascular #1: regular rate, rhythm, no edema Gastrointestinal: normal bowel sounds, non tender, soft, non-distended, no guarding, no rebound Rectal: deferred Musculoskeletal: back normal, normal range of motion, gait/station normal, non- tender Neurologic: alert, motor strength/tone normal, oriented x3, sensory intact, responsive, speech normal Psychiatric: judgement/insight normal, memory normal, mood/affect normal, no suicidal/homicidal ideation Skin: no rash, normal color Medical Decision Making Diagnostic Impression: Primary Impression: COPD exacerbation Additional Impressions: Pharyngitis, acute Peripheral neuropathy ER Course This patient has a clinical presentation consistent with COPD/asthma exacerbation. Patient has a history of COPD and has wheezing on physical exam. The patient was given albuterol and Atrovent nebulizer treatments. The patient was also given prednisone orally. The patient had significant improvement in subjective shortness of breath. The patient's lung exam improved significantly. I will also treat the patient with a course of antibiotics as this has been shown to improve the course of an asthma exacerbation. The patient also has an upper respiratory infection/pharyngitis that is likely viral in etiology. The physical exam is not consistent with a streptococcal etiology. Overall, the patient is well-appearing and nontoxic. He is without respiratory distress. I have a low suspicion for COVID-19. The COVID-19 antigen test was negative which is notoriously inaccurate, however, given the patient's presentation and history of vaccination I have a low suspicion for an occult COVID-19 infection. Rapid influenza is negative. Patient was instructed on the dangers of polydrug abuse. Patient has a follow-up appointment with his primary care physician to further monitoring his kidney function and to discuss his peripheral neuropathy tomorrow. The patient was educated that he should keep this appointment. Overall, the patient's evaluation is benign and he responded well to treatment. The patient was given close return precautions and followup instructions. Laboratory Tests Test 08/25/20 11:51 08/25/20 12:04 White Blood Count 15.8 K/UL (4.8-10.8) H Red Blood Count 4.35 M/UL (4.70-6.10) L Hemoglobin 13.4 G/DL (14.2-18.0) L Hematocrit 43.8 % (42.0-52.0) Mean Corpuscular Volume 101 FL (80-99) H Mean Corpuscular Hemoglobin 30.8 PG (27.0-31.0) Mean Corpuscular Hemoglobin Concent 30.6 G/DL (32.0-36.0) L Red Cell Distribution Width 12.7 % (11.6-14.8) Platelet Count 236 K/UL (150-450) Mean Platelet Volume 9.8 FL (6.5-10.1) Neutrophils (%) (Auto) 71.7 % (45.0-75.0) Lymphocytes (%) (Auto) 16.4 % (20.0-45.0) L Monocytes (%) (Auto) 7.1 % (1.0-10.0) Eosinophils (%) (Auto) 3.4 % (0.0-3.0) H Basophils (%) (Auto) 1.5 % (0.0-2.0) Urine Color Pale yellow Urine Appearance Clear Urine pH 5 (4.5-8.0) Urine Specific [place] 1.015 (1.005-1.035) Urine Protein Negative (NEGATIVE) Urine Glucose (UA) Negative (NEGATIVE) Urine Ketones Negative (NEGATIVE) Urine Blood Negative (NEGATIVE) Urine Nitrite Negative (NEGATIVE) Urine Bilirubin Negative (NEGATIVE) Urine Urobilinogen Normal MG/DL (0.0-1.0) Urine Leukocyte Esterase Negative (NEGATIVE) Sodium Level 143 MMOL/L (136-145) Potassium Level 4.1 MMOL/L (3.5-5.1) Chloride Level 105 MMOL/L (98-107) Carbon Dioxide Level 28 MMOL/L (21-32) Anion Gap 10 mmol/L (5-15) Blood Urea Nitrogen 27 mg/dL (7-18) H Creatinine 1.8 MG/DL (0.55-1.30) H Estimated Glomerular Filtration Rate 47.5 mL/min (>60) Glucose Level 97 MG/DL (74-106) Calcium Level 9.3 MG/DL (8.5-10.1) Total Bilirubin 0.5 MG/DL (0.2-1.0) Aspartate Amino Transferase (AST) 20 U/L (15-37) Alanine Aminotransferase (ALT) 23 U/L (12-78) Alkaline Phosphatase 68 U/L (46-116) Troponin I 0.003 ng/mL (0.000-0.056) Total Protein 6.9 G/DL (6.4-8.2) Albumin 4.0 G/DL (3.4-5.0) Globulin 2.9 g/dL Albumin/Globulin Ratio 1.4 (1.0-2.7) POC Whole Blood Glucose 92 MG/DL (74-106) Microbiology Date/Time Source Procedure Growth Status 08/25/20 11:58 Nasal Nares - Final Complete 08/25/20 11:58 Nasal Nares - Final Complete 08/25/20 11:51 Nasopharynx SARS-CoV-2 Antigen (Rapid)(YARA) - Final Complete EKG Diagnostic Results Troponin ordered: Yes Rate: normal Rhythm: NSR ST Segments: no acute changes Rhythm Strip Diag. Results EP Interpretation: yes Rate: 70's Rhythm: NSR, no PVC's, no ectopy Chest X-Ray Diagnostic Results Chest X-Ray Diagnostic Results : Chest X-Ray Ordered: Yes # of Views/Limited/Complete: 1 View Indication: Shortness of Breath EP Interpretation: Yes Interpretation: no consolidation, no effusion, no pneumothorax, no acute cardiopulmonary disease Impression: No acute disease Electronically Signed by: Cheryl Burton DO Last Vital Signs Date Time Temp Pulse Resp B/P (MAP) Pulse Ox O2 Delivery O2 Flow Rate FiO2 08/25/20 11:25 97.9 76 19 123/82 (96) 93 Room Air Status: improved Disposition: HOME, SELF-CARE Condition: Improved Referrals: [facility],REFERRING (PCP) Cheryl Burton DO Aug 25, 2020 11:35
--- NOTE | 2020-08-25 12:13 | NUR ---
Patient presented to the ER with c/o chills, sore throat and diarrhea x 3 days. He also c/o bi-lateral foot pain and stated that he was told that he was pre-diabetic. Patient is a every other day cocaine user and every day THC user. He smokes 1/2 pack of cigarettes daily. Patient received 2nd dose of Covid vaccine- Moderna 10 days ago.
[2020-08-25] MEDS ORDERED: Albuterol ud Inhalation HHN ONE (12:15)
[2020-08-25] MEDS ORDERED: Ipratropium 0.02% Inh Soln 2.5ml UD HHN ONE (12:15)
--- NOTE | 2020-08-25 12:17 | NUR ---
Blood specimen and urine received and sent to the lab. Flu swab received and sent. Rapid Covid test swab collected and sent to lab.
[2020-08-25 12:24] LABS: APPEARANCE,URINE CLEAR; BILIRUBIN, URINE NEGATIVE (NEGATIVE); COLOR,URINE PALE YELLOW; GLUCOSE, URINE (UA) NEGATIVE (NEGATIVE); KETONES,URINE NEGATIVE (NEGATIVE); LEUKOCYTE ESTERASE ,URINE NEGATIVE (NEGATIVE); NITRITE,URINE NEGATIVE (NEGATIVE); PH,URINE 5 (4.5-8.0); PROTEIN,URINE NEGATIVE (NEGATIVE); UROBILINOGEN,URINE NORMAL MG/DL (0.0-1.0)
[2020-08-25 12:30] LABS: BASOPHILS % (AUTO) 1.5 % (0.0-2.0); EOSINOPHILS % (AUTO) 3.4 % (0.0-3.0); HEMATOCRIT 43.8 % (42.0-52.0); HEMOGLOBIN 13.4 G/DL (14.2-18.0); LYMPHOCYTES % (AUTO) 16.4 % (20.0-45.0); MEAN CORPUSCULAR VOLUME 101 FL (80-99); MONOCYTES % (AUTO) 7.1 % (1.0-10.0); NEUTROPHILS % (AUTO) 71.7 % (45.0-75.0); PLATELET COUNT 236 K/UL (150-450); RED BLOOD COUNT 4.35 M/UL (4.70-6.10); RED CELL DISTRIBUTION WIDTH 12.7 % (11.6-14.8); WHITE BLOOD COUNT 15.8 K/UL (4.8-10.8)
[2020-08-25 12:36] LABS: CALCIUM 9.3 MG/DL (8.5-10.1); CREATININE 1.8 MG/DL (0.55-1.30); POTASSIUM 4.1 MMOL/L (3.5-5.1)
[2020-08-25 12:41] LABS: ALBUMIN/GLOBULIN RATIO 1.4 (1.0-2.7); BILIRUBIN,TOTAL 0.5 MG/DL (0.2-1.0)
[2020-08-25] MEDS ORDERED: PREDNISONE20 MG ORAL (13:45)
[2020-08-25] MEDS ORDERED: VENTOLIN HFA18 GM INH (13:45)
[2020-08-25] MEDS ORDERED: ZITHROMAX250 MG ORAL (13:45)
--- NOTE | 2020-08-25 17:14 | Diagnostic Imaging Report ---
Indication: Cough Technique: One view of the chest Comparison: 01/11/2017 Findings: Lungs and pleural spaces are clear. Heart size is normal. No significant interim change Impression: No acute process
--- NOTE | 2020-08-26 16:32 | Cardiology Report ---
APPROVED REPORT EKG Measurement Heart [id number] <Conclusion> Normal sinus rhythm Normal ECG
== END 2020-08-25 13:50 | disposition home or self-care (01) ==
LOC: EMR 11:34
DX: J44.1 Chronic obstructive pulmonary disease with (acute) exacerbation (principal); J02.9 Acute pharyngitis, unspecified; E11.42 Type 2 diabetes mellitus with diabetic polyneuropathy; I12.9 Hypertensive chronic kidney disease with stage 1 through stage 4 chronic kidney disease, or unspecified chronic kidney disease; E11.22 Type 2 diabetes mellitus with diabetic chronic kidney disease; N18.9 Chronic kidney disease, unspecified; F17.210 Nicotine dependence, cigarettes, uncomplicated; F14.90 Cocaine use, unspecified, uncomplicated; F12.90 Cannabis use, unspecified, uncomplicated
CPT/HCPCS: 36415; 71045; 80053; 81003; 82962; 84484; 85025; 86710; 93005; 94640; J7030; J7512; Z7502; 99284